=== PATIENT | female | born 1960 | race Caucasian/White ===

== ENCOUNTER 2019-05-30 09:34 | Inpatient (IN) ==
[2019-05-30] MEDS ORDERED: ONDANSETRON INJ 2 MG/ML 2 ML VIAL IV STA (09:56)
[2019-05-30] MEDS ORDERED: SODIUM CHLORIDE 0.9% 1000ML 2,000 ML IV SCH (10:00)
[2019-05-30 10:16] LABS: Basophils # (auto) 0.02 K/uL (0-0.2); Basophils % (auto) 0.2 %; Eosinophils # (auto) 0.12 K/uL (0-0.5); Hemoglobin 13.1 g/dL (12.0-16.0); Immature Granulocytes # (auto) 0.06 K/uL (0.00-0.02); Immature Granulocytes % (auto) 0.5 %; Lymphocytes # (auto) 1.04 K/uL (1.2-3.4); Lymphocytes % (auto) 8.8 %; Mean Corpuscular Hgb Conc 34.5 g/dL (32-36); Mean Corpuscular Volume 93.1 fL (80-100); Mean Platelet Volume 11.7 fL (7.4-10.4); Monocytes # (auto) 1.05 K/uL (0.11-0.59); Monocytes % (auto) 8.9 %; Neutrophils # (auto) 9.52 K/uL (1.4-6.5); Neutrophils % (auto) 80.6 %; Platelet Count 217 K/uL (130-400); RDW Coefficient of Variation 15.2 % (11.5-14.5); RDW Standard Deviation 51.3 fL (36.4-46.3); Red Blood Count 4.08 M/uL (4.2-5.4); White Blood Count 11.81 K/uL (4.8-10.8)
[2019-05-30 10:17] LABS: iSTAT Creatinine 5.2 mg/dl (0.6-1.3); iSTAT Hemoglobin 13.6 g/dl (12.0-16.0); iSTAT Ionized Calcium 1.02 mmol/l (1.12-1.32); iSTAT Potassium 3.4 mEq/L (3.3-5.0)
[2019-05-30 10:42] LABS: Albumin Globulin Ratio 0.5 (0.9-2); Albumin Level 2.2 gm/dl (3.4-5.0); BUN Creatinine Ratio 11.5 (10-20); Bilirubin,Total 0.4 mg/dl (0.2-1); Calcium 8.4 mg/dl (8.5-10.1); Creatinine Clr Calc Pharmacy 16.5 ml/min; Est GFR (African American) 10.8; Est GFR (Non-African American) 9.4; Globulin 4.9 gm/dl (2.5-4.0); Potassium 3.6 mmol/L (3.5-5.1); Total Protein 7.1 gm/dl (6.4-8.2)
--- NOTE | 2019-05-30 10:53 | Emergency Department Note ---
Entered by Hannah Lehman acting as a scribe for Luiz Elder DO History of Present Illness General Chief complaint: Flu Like Symptoms Time Seen by Provider: 05/30/19 09:56 Source: patient History of Present Illness Provider complaint: illness Onset (ago): day(s) 5 Pain Consistency: + other (episode) Maximum Pain Intensity: 0 Quality: + other (illness) Associated symptoms: + denies other symptoms (sick contact, eating bad food, being on antibiotics), + nausea/vomiting and + other (watery diarrhea, left upper rib pain) Treatments prior to arrival: none The patient is a 58 year old female who presents to the ED with complaints of an episode of an illness that started 5 days ago. The patient states that she has been nauseated, had diarrhea and has been vomiting. The patient notes that the vomiting stopped 3 days ago. The patient describes her diarrhea at watery. The patient states that she has left upper rib pain from a recent fall. The patient denies sick contact, eating bad food and being on antibiotics recently. The patient denies receiving any treatments prior to arrival. Home Medications Home Medications Medication Instructions Recorded Confirmed Type acetaminophen [Tylenol Extra 500 mg PO Q6H PRN 05/30/19 05/30/19 History Strength] albuterol sulfate [Ventolin HFA] 1 puff INHALATION Q4H PRN 05/30/19 05/30/19 History alprazolam 0.5 mg PO DAILY PRN 05/30/19 05/30/19 History aspirin 81 mg PO HS 05/30/19 05/30/19 History cholecalciferol (vitamin D3) 2,000 unit PO HS 05/30/19 05/30/19 History [Vitamin D3] clopidogrel 75 mg PO HS 05/30/19 05/30/19 History duloxetine 30 mg PO HS 05/30/19 05/30/19 History duloxetine 60 mg PO HS 05/30/19 05/30/19 History fenofibrate 160 mg PO HS 05/30/19 05/30/19 History qszfpvhuxgg-aryxvvqth-olcbjkqe 1 inh INHALATION BID 05/30/19 05/30/19 History [Trelegy Ellipta] insulin degludec [Tresiba 25 unit SUBCUT QAM 05/30/19 05/30/19 History FlexTouch U-100] lisinopril 10 mg PO HS 05/30/19 05/30/19 History metformin 500 mg PO BID 05/30/19 05/30/19 History pravastatin 20 mg PO HS 05/30/19 05/30/19 History Allergies Allergy/AdvReac Type Severity Reaction Status Date / Time isosorbide AdvReac Mild MIGRAINS Unverified 05/30/19 11:01 Past Med/Surg History Social History Preferred Language: Persian Feels Safe at Home: Yes Smoking Status: Current every day smoker Review of Systems See HPI for pertinent positives & negatives. and A total of 10 systems reviewed and were otherwise negative Physical Exam Vital Signs Vital Signs - 24 hr 05/30/19 09:48 05/30/19 09:52 05/30/19 09:54 Temperature 36.5 C Temperature Source Oral Sepsis Recent Fever Within 48 Hours Yes Sepsis New/Unexplained Change in Mental Status No Sepsis Action Taken by Nursing No Action Required Pulse Rate Pulse Rate [Apical] 73 77 Pulse Rhythm Regular Pulse Rhythm [Apical] Regular Regular Respiratory Rate 16 16 Respiratory Effort / Characteristics Non-Labored Spontaneous Non-Labored Spontaneous Respiratory Depth Normal Normal Respiratory Pattern Regular Blood Pressure Blood Pressure [Left Arm] 60/45 L 78/43 L Blood Pressure Mean Blood Pressure Mean [Left Arm] 50 54 Pulse Oximetry 93 92 Oxygen Delivery Method Room Air Room Air 05/30/19 10:01 05/30/19 10:14 05/30/19 10:37 Temperature Temperature Source Sepsis Recent Fever Within 48 Hours Sepsis New/Unexplained Change in Mental Status Sepsis Action Taken by Nursing Pulse Rate 74 71 Pulse Rate [Apical] 72 Pulse Rhythm Regular Pulse Rhythm [Apical] Regular Respiratory Rate 21 17 17 Respiratory Effort / Characteristics Non-Labored Spontaneous Respiratory Depth Normal Respiratory Pattern Regular Blood Pressure 78/44 L Blood Pressure [Left Arm] 81/56 L Blood Pressure Mean 55 Blood Pressure Mean [Left Arm] 64 Pulse Oximetry 93 92 Oxygen Delivery Method Room Air Room Air CONSTITUTIONAL/VITAL SIGNS: Reviewed / noted above. GENERAL: Non-toxic in appearance. INTEGUMENTARY: Warm, dry, and [place]. HEAD: Normocephalic. EYES: without scleral icterus or trauma. ENT/OROPHARYNX: dry mucous membranes. LYMPHADENOPATHY/NECK: Is supple without lymphadenopathy or meningismus. RESPIRATORY: Lungs clear and equal. CARDIOVASCULAR: Regular rate and rhythm. GI/ABDOMEN: RLQ tenderness to palpation, soft. No organomegaly or pulsatile mass. No rebound or guarding. Normal bowel sounds. EXTREMITIES: Warm and well perfused. BACK: No CVA tenderness. NEUROLOGICAL: Intact without focal deficits. PSYCHIATRIC: normal affect. MUSCULOSKELETAL: Normally developed with good muscle tone. Course 0958: Past medical records reviewed. The patient was evaluated in room B6. A complete history and physical exam was performed. 1052: I [facility] the [facility] She will evaluate the patient for further management. Consultations Consultation #1: I discussed the patient's case with [facility] Ru[facility] Hospitalist. She will evaluate the patient for further management. Time: 10:52 Administered Medications Sodium Chloride (Nss 1000ml) 2,000 mls @ 999 mls/hr IV .Q2H1M THANIA Stop: 05/30/19 12:00 Last Admin: 05/30/19 10:09 Dose: 999 mls/hr Documented by: [id number] Discontinued Medications Ondansetron HCl (Zofran) 4 mg IV NOW STA Stop: 05/30/19 09:57 Last Admin: 05/30/19 10:38 Dose: 4 mg Documented by: [id number] Medical Decision Making Differential Diagnosis Differential includes acute coronary syndrome, myocardial infarction, CVA, TIA, anemia, infection, pneumonia, UTI, pyelonephritis, poor nutrition, dehydration, electrolyte disturbance,hypoglycemia. Medical Records Attestation: I reviewed the patient's medical records. Home Medications Current Medication List: was personally reviewed by me Laboratory Data Attestation: I reviewed the patient's lab results. Result diagrams: 05/30/19 10:02 05/30/19 10:02 Lab Results 05/30/19 05/30/19 05/30/19 Range/Units 10:02 10:02 10:03 WBC 11.81 H (4.8-10.8) K/uL RBC 4.08 L (4.2-5.4) M/uL Hgb 13.1 (12.0-16.0) g/dL POC Hgb 13.6 (12.0-16.0) g/dl Hct 38.0 (37-47) % POC Hct 40 (37-47) % MCV 93.1 (80-100) fL MCH 32.1 (25-34) pg MCHC 34.5 (32-36) g/dL RDW Std Deviation 51.3 H (36.4-46.3) fL RDW Coeff of Randa 15.2 H (11.5-14.5) % Plt Count 217 (130-400) K/uL MPV 11.7 H (7.4-10.4) fL Immature Gran % (Auto) 0.5 % Neut % (Auto) 80.6 % Lymph % (Auto) 8.8 % [place] % (Auto) 8.9 % Eos % (Auto) 1.0 % Baso % (Auto) 0.2 % Immature Gran # (Auto) 0.06 H (0.00-0.02) K/uL Neut # (Auto) 9.52 H (1.4-6.5) K/uL Lymph # (Auto) 1.04 L (1.2-3.4) K/uL [place] # (Auto) 1.05 H (0.11-0.59) K/uL Eos # (Auto) 0.12 (0-0.5) K/uL Baso # (Auto) 0.02 (0-0.2) K/uL POC Sodium 133 L (135-144) mEq/L Sodium 135 L (136-145) mmol/L POC Potassium 3.4 (3.3-5.0) mEq/L Potassium 3.6 (3.5-5.1) mmol/L POC Chloride 101 (101-112) mEq/L Chloride 102 (98-107) mmol/L Carbon Dioxide 23 (21-32) mmol/L POC Total CO2 24 (24-31) mEq/l Anion Gap 10.0 (3-11) POC Anion Gap 13.0 L (16-25) mmol/L POC BUN 49 H (7-18) mg/dl BUN 55 H (7-18) mg/dl Creatinine 4.78 H* (0.6-1.2) mg/dl POC Creatinine 5.2 H* (0.6-1.3) mg/dl Est Cr Clr Drug Dosing 16.5 ml/min Est GFR ( Amer) 10.8 Est GFR (Non-Af Amer) 9.4 BUN/Creatinine Ratio 11.5 (10-20) Glucose 163 H (70-99) mg/dl POC Glucose (other) 163 H (70-99) mg/dl Lactate (0.4-2.0) mmol/L Calcium 8.4 L (8.5-10.1) mg/dl POC Ioniz Calcium Analisa 1.02 L (1.12-1.32) mmol/l Total Bilirubin 0.4 (0.2-1) mg/dl AST 15 (15-37) U/L ALT 13 (12-78) U/L Alkaline Phosphatase 55 (45-117) U/L Total Protein 7.1 (6.4-8.2) gm/dl Albumin 2.2 L (3.4-5.0) gm/dl Globulin 4.9 H (2.5-4.0) gm/dl Albumin/Globulin Ratio 0.5 L (0.9-2) TSH 1.390 (0.300-4.500) uIu/ml 05/30/19 Range/Units 10:30 WBC (4.8-10.8) K/uL RBC (4.2-5.4) M/uL Hgb (12.0-16.0) g/dL POC Hgb (12.0-16.0) g/dl Hct (37-47) % POC Hct (37-47) % MCV (80-100) fL MCH (25-34) pg MCHC (32-36) g/dL RDW Std Deviation (36.4-46.3) fL RDW Coeff of Randa (11.5-14.5) % Plt Count (130-400) K/uL MPV (7.4-10.4) fL Immature Gran % (Auto) % Neut % (Auto) % Lymph % (Auto) % [place] % (Auto) % Eos % (Auto) % Baso % (Auto) % Immature Gran # (Auto) (0.00-0.02) K/uL Neut # (Auto) (1.4-6.5) K/uL Lymph # (Auto) (1.2-3.4) K/uL [place] # (Auto) (0.11-0.59) K/uL Eos # (Auto) (0-0.5) K/uL Baso # (Auto) (0-0.2) K/uL POC Sodium (135-144) mEq/L Sodium (136-145) mmol/L POC Potassium (3.3-5.0) mEq/L Potassium (3.5-5.1) mmol/L POC Chloride (101-112) mEq/L Chloride (98-107) mmol/L Carbon Dioxide (21-32) mmol/L POC Total CO2 (24-31) mEq/l Anion Gap (3-11) POC Anion Gap (16-25) mmol/L POC BUN (7-18) mg/dl BUN (7-18) mg/dl Creatinine (0.6-1.2) mg/dl POC Creatinine (0.6-1.3) mg/dl Est Cr Clr Drug Dosing ml/min Est GFR ( Amer) Est GFR (Non-Af Amer) BUN/Creatinine Ratio (10-20) Glucose (70-99) mg/dl POC Glucose (other) (70-99) mg/dl Lactate 3.8 H* (0.4-2.0) mmol/L Calcium (8.5-10.1) mg/dl POC Ioniz Calcium Analisa (1.12-1.32) mmol/l Total Bilirubin (0.2-1) mg/dl AST (15-37) U/L ALT (12-78) U/L Alkaline Phosphatase (45-117) U/L Total Protein (6.4-8.2) gm/dl Albumin (3.4-5.0) gm/dl Globulin (2.5-4.0) gm/dl Albumin/Globulin Ratio (0.9-2) TSH (0.300-4.500) uIu/ml Imaging Data Radiologist's Impression: Radiology results as stated below per my review and the radiologist's interpretation: XR chest 1V portable CLINICAL HISTORY: Left rib pain status post trauma COMPARISON STUDY: 119 FINDINGS: There are postsurgical changes of midline sternotomy. The heart is mildly enlarged. There is no focal pulmonary consolidation. There is no overt failure. There are no significant pleural effusions. There is no pneumothorax.[ IMPRESSION: Cardiomegaly. No acute findings. No evidence of pneumothorax Electronically signed by: Wiley Lagunas M.D. 05/30/2019 10:[address] abd pelvis wo con CT DOSE: 1467.64 mGy.cm HISTORY: Pain. Flank pain. rlq pain, n/v/d TECHNIQUE: Multiaxial CT images of the abdomen and pelvis were performed without contrast. A dose lowering technique was utilized adhering to the principles of ALARA. COMPARISON STUDY: 02/15/2019 FINDINGS: Minimal dependent basilar atelectasis. Mild stable hepatomegaly. Prior cholecystectomy. Pancreas and spleen are unremarkable. Moderate atrophy and cortical scarring left kidney unchanged. Interval development of right renal hydroureteronephrosis. 2 mm obstructing c alculus distal right ureter. Bladder is relatively collapsed. Bowel pattern is nonobstructive. Normal appendix. IMPRESSION: 1. 2 mm obstructing calculus distal right ureter. 2. Mild right renal hydroureteronephrosis. 3. Several nonobstructing right renal cortical calcifications. 4. Left renal atrophy unchanged. 5. Remainder of the study is stable The above report was generated using voice recognition software. It may contain grammatical, syntax or spelling errors. Electronically signed by: Kiko Barnett M.D. 05/30/2019 10:53 AM ECG Data Indication: weakness Rate (beats per minute): 77 Rhythm: normal sinus Findings: + T-wave inversion (Anterolateral) Comparison ECG Date: from (February 15, 2019, T inversions anterior are new. Lat inversions old. ) Blood Pressure Blood Pressure Findings: Low blood pressure Blood Pressure Disposition: further management by hospitalist MATT Glover This is a 58-year-old female who presents to the ED with a chief complaint of nausea, vomiting and diarrhea. The patient states that she has been having the symptoms since Sunday, 5 days. The first 2 days she had vomiting and diarrhea. This ended but the diarrhea persisted. She reports that it is a watery diarrhea and she is going about 3-5 times per day. She states that at times she does not know that it is coming. The patient's initial blood pressure here was 78/43. Her physical exam was relatively benign other than dry mucous membranes. An EKG shows a normal sinus rhythm at a rate of 77. Does have some T wave inversions in the anterolateral leads. The lateral T wave inversion appears to be chronic. The anterior T wave inversions appear to be new. She is on rate controlled antihypertensives. A CT scan of the abdomen pelvis did show a 2 mm distal right ureteral stone with some mild obstructive changes. The patient was given 2 L normal saline IV bolus in the emergency department for her hypotension. She was also given IV Zofran. She will be seen by the hospitalist for further evaluation and care. Impression & Plan Nausea, vomiting, and diarrhea, Acute renal failure, Dehydration, Hypotension, Ureteral calculus, right Critical Care Time Critical Care Time: Yes Total Critical Care Time: 30 I have personally spent 30 minutes of critical care time in the direct management of this patient. This includes bedside care, interpretation of diagnostic studies, and testing, discussion with consultants, patient, and [facility] members, and other required patient management activities. This 30 minutes is in excess of all separately billable procedures. Discharge Plan Visit Data Chief Complaint: Flu Like Symptoms ED Provider: Luiz Elder Discharge Problem: Nausea, vomiting, and diarrhea, Acute renal failure, Dehydration, Hypotension, Ureteral calculus, right Patient Disposition: Being Evaluated by Hospitalist Forms Stand Alone Forms: [facility] Prescriptions Prescriptions: No Action clopidogrel 75 mg tablet 75 mg PO HS RF: 0 aspirin 81 mg Tablet,Delayed Release (Dr/Ec) 81 mg PO HS RF: 0 acetaminophen [Tylenol Extra Strength] 500 mg Tablet 500 mg PO Q6H PRN (Reason: Pain) RF: 0 alprazolam 0.5 mg tablet 0.5 mg PO DAILY PRN (Reason: Anxiety) RF: 0 pravastatin 10 mg tablet 20 mg PO HS RF: 0 lisinopril 10 mg tablet 10 mg PO HS RF: 0 albuterol sulfate [Ventolin HFA] 90 mcg/actuation HFA aerosol inhaler 1 puff inhalation Q4H PRN (Reason: Shortness Of Breath Or Wheezing) RF: 0 metformin 500 mg tablet extended release 24 hr 500 mg PO BID RF: 0 duloxetine 30 mg capsule,delayed release(DR/EC) 30 mg PO HS RF: 0 duloxetine 60 mg capsule,delayed release(DR/EC) 60 mg PO HS RF: 0 fenofibrate 160 mg tablet 160 mg PO HS RF: 0 cholecalciferol (vitamin D3) [Vitamin D3] 2,000 unit Tablet 2,000 unit PO HS RF: 0 Tresiba FlexTouch U-100 100 unit/mL (3 mL) insulin pen 25 unit subcut QAM RF: 0 Trelegy Ellipta 100-62.5-25 mcg blister with device 1 inh inhalation BID RF: 0 Referrals Referrals: PCP,NO [Primary Care Provider] - Discharge Problem: Acute renal failure Qualifiers: Acute renal failure type: unspecified Qualified Code(s): N17.9 - Acute kidney failure, unspecified Hypotension Qualifiers: Hypotension type: unspecified hypotension type Qualified Code(s): I95.9 - Hypotension, unspecified The scribe's documentation has been prepared under my direction and personally reviewed by me in its entirety. I confirm that the note above accurately reflects all work, treatment, procedures, and medical decision making performed by me.
--- NOTE | 2019-05-30 10:54 | XRay Report ---
XR chest 1V portable CLINICAL HISTORY: Left rib pain status post trauma COMPARISON STUDY: 119 FINDINGS: There are postsurgical changes of midline sternotomy. The heart is mildly enlarged. There i s no focal pulmonary consolidation. There is no overt failure. There are no significant pleural effus ions. There is no pneumothorax.[ IMPRESSION: Cardiomegaly. No acute findings. No evidence of pneumothorax Electronically signed by: Wiley Lagunas M.D. 05/30/2019 10:53 AM
--- NOTE | 2019-05-30 11:37 | History & Physical Report ---
Date of Service May 30, 2019 Assessment & Plan (1) Nausea, vomiting, and diarrhea: Sx c/w acute GE given started with emesis which has resolved and moved into diarrhea CTAP noted for obstructing renal stone, which may be contributing IVF, zofran Clears Electrolytes WNL with K low normal, will add K to IVF (2) Acute renal failure: Likely related to dehydration from above sx CTAP noted for obstructing renal stone, which may be contributing No prior hx of renal issues Taking lisinopril and metformin, hold both Monitor cr (3) Ureteral calculus, right: CTAP noted for obstructing renal stone, which may be contributing Add flomax (4) Fall: Likely related to ARF leading to weakness Pt is otherwise functional, will hold on PT/OT unless this persists (5) History of open heart surgery: Will continue asp/plavix given need for repeat surgery with prior d/c of plavix (6) Hyperlipidemia: Holding for now (7) HTN (hypertension): HypoTN in the ED, likely related to above Holding home meds (8) DM type 2 (diabetes mellitus, type 2): Holding home insulin and metformin until reliable PO and cr is WNL SSI PRN A1c pending (9) Depression: continue home meds (10) COPD (chronic obstructive pulmonary disease): continue home meds (11) Anxiety: continue home meds (12) Tobacco use disorder: Working towards cessation with chantix, but no desire to smoke during acute illness Nicotine patch PRN (13) DVT prophylaxis: SCDs, ambulation History of Present Illness Primary Care Provider: NO PCP 58 y/o F c/o n/v/d. Pt states she started to have body aches on Sunday. She started to have n/v and intolerance to PO on Sunday. This continued on Sunday and she also started to have diarrhea. By Sunday, pt had stopped with n/v but she continued to have diarrhea that was mostly water. This has continued into today. Her last emesis was Sunday. She has been able to keep down a bit of soup and watermelon since that time, but no substantial PO other than some fluids. She states she was sick with something similar a few months ago, but it was much less severe. Over the last few days, pt has not been urinating much. She has also noted that she feels confused and her friend states that she has been saying things that are not making sense and having trouble walking. Pt states she feels very weak and has had several falls over the last few days, which is unusual for her. Pt notes taking some sort of OTC anti-diarrheal medication the last few days. She has been able to take her regular medicines, but did miss her insulin this AM. Pt has hx of renal stones requiring lithotripsy and surgical stent placement. She states she has baseline back pain and this has been no different. She states that she has had no sx similar to when she has had renal stones in the past. Pt is a smoker, usually 1ppd, but has been only smoking about 2 cigs/day during this acute illness. She is trying to stop using chantix. Pt tells me that she had a CABG 8 yrs ago. She was put on aspirin/plavix at that time. 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 She has been told that she will need this medication indefinitely. She has been taking it while ill. Allergies Allergy/AdvReac Type Severity Reaction Status Date / Time isosorbide AdvReac Mild MIGRAINS Unverified 05/30/19 11:01 Home Medications Home Medications Medication Instructions Recorded Confirmed Type acetaminophen [Tylenol Extra 500 mg PO Q6H PRN 05/30/19 05/30/19 History Strength] albuterol sulfate [Ventolin HFA] 1 puff INHALATION Q4H PRN 05/30/19 05/30/19 History alprazolam 0.5 mg PO DAILY PRN 05/30/19 05/30/19 History aspirin 81 mg PO HS 05/30/19 05/30/19 History cholecalciferol (vitamin D3) 2,000 unit PO HS 05/30/19 05/30/19 History [Vitamin D3] clopidogrel 75 mg PO HS 05/30/19 05/30/19 History duloxetine 30 mg PO HS 05/30/19 05/30/19 History duloxetine 60 mg PO HS 05/30/19 05/30/19 History fenofibrate 160 mg PO HS 05/30/19 05/30/19 History hjoezwswzpl-oqgmlqlrp-hremabvi 1 inh INHALATION BID 05/30/19 05/30/19 History [Trelegy Ellipta] insulin degludec [Tresiba 25 unit SUBCUT QAM 05/30/19 05/30/19 History FlexTouch U-100] lisinopril 10 mg PO HS 05/30/19 05/30/19 History metformin 500 mg PO BID 05/30/19 05/30/19 History pravastatin 20 mg PO HS 05/30/19 05/30/19 History Past Med/Surg History Medical History History of intravascular stent placement Surgical History Previous back surgery History of open heart surgery Social History Preferred Language: Welsh Feels Safe at Home: Yes Smoking Status: Current every day smoker packs per day: 1 ; Hx Alcohol Use: Yes (occasional, none recently) Hx Substance Use: No Review of Systems Review of Systems: Pertinent positives and negatives reviewed in HPI--all others negative Physical Exam Constitutional: WD/WN, vitals as above + ill appearing Eyes: normal visual renteria by confrontation and + anicteric sclerae Neck: normal visual inspection and trachea midline Respiratory: normal respiratory effort, lungs clear to auscultation Cardiovascular: Rate/Rhythm: regular rate and regular rhythm Gastrointestinal (Abdomen): Inspection/Auscultation: abdomen not distended Percussion/Palpation: abdomen soft; abdomen nontender Musculoskeletal: Head/Neck/Chest: normocephalic and head atraumatic negative for edema, peripheral pulses intact Skin: no rashes, warm and dry Neurologic: CN's II-XI intact bilaterally and awake; not confused Speech / 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 5/5 b/l LE strength against resistance 5/5 b/l in all planes Psychiatric: Orientation: oriented x 3 and cooperative Speech: normal rate/rhythm/volume of speech Affect: + tearful affect Results & Data Vital Signs (Past 12 Hours) Vital Signs Temp Pulse Pulse Resp BP BP Pulse Ox 05/30/19 11:15 74 16 69/47 L 92 05/30/19 11:00 74 19 88/53 L 93 05/30/19 10:45 74 20 86/60 L 93 05/30/19 10:37 72 17 81/56 L 92 05/30/19 10:14 71 17 93 05/30/19 10:01 74 21 78/44 L 05/30/19 09:54 77 16 78/43 L 92 05/30/19 09:52 36.5 C 05/30/19 09:48 73 16 60/45 L 93 Diagnostic Findings CTAP: 2mm obstructing renal stones with mild hydro, multiple other small nonobstructing stones ECG Findings: + T-wave inversion Code Status & VTE Plan Code Status Full code VTE Prophylaxis Plan VTE Prophylaxis will be ordered: Yes PG Care Time/CCT Total # of Minutes Spent Total Time Spent with Patient: Total time spent is greater than 50% in coordi nation of care (as documented) at patient's floor/unit and/or counseling patient: (1) Acute renal failure Acute renal failure type: unspecified Qualified Code(s): N17.9 - Acute kidney failure, unspecified
[2019-05-30] MEDS ORDERED: SODIUM CHLORIDE 0.9% 1000ML 1,000 ML IV ONE (11:45)
[2019-05-30] MEDS ORDERED: ASPIRIN CHEW 324 MG PO STA (12:20)
[2019-05-30] MEDS ORDERED: ACETAMINOPHEN 325 MG TAB PO PRN (14:56)
[2019-05-30] MEDS ORDERED: CARBOHYDRATES FOR HYPOGLYCEMIA PO PRN (14:56)
[2019-05-30] MEDS ORDERED: GLUCOSE 10 TABS/TUBE PO PRN (14:56)
[2019-05-30] MEDS ORDERED: GLUCAGON FOR INJ 1 MG VIAL SQ PRN (14:56)
[2019-05-30] MEDS ORDERED: ALPRAZolam 0.5 MG TABLET PO PRN (14:56)
[2019-05-30] MEDS ORDERED: ONDANSETRON INJ 2 MG/ML 2 ML VIAL IV PRN (14:56)
[2019-05-30] MEDS ORDERED: MAGNESIUM HYDROXIDE SUSP 30 ML UDC PO PRN (14:56)
[2019-05-30] MEDS ORDERED: ACETAMINOPHEN 500 MG TAB PO PRN (14:56)
[2019-05-30] MEDS ORDERED: DEXTROSE 50% 50 ML SYRINGE IV PRN (14:56)
[2019-05-30] MEDS ORDERED: GLUCOSE 40% GEL 15 GM TUBE PO PRN (14:56)
[2019-05-30] MEDS ORDERED: NICOTINE 14 MG/24 HR PATCH TD PRN (15:00)
[2019-05-30] MEDS ORDERED: ALBUTEROL HFA 8 GM INHALER INH PRN (15:00)
[2019-05-30] MEDS: NSS + 20MEQ KCL 20 MEQ/1,000 ML BAG IV SCH (16:11)
[2019-05-30] MEDS: INSULIN ASPART 100 UNITS/ML 3 ML PEN SC SCH ×2 (18:08→20:59)
[2019-05-30] MEDS: DULOXETINE HCL 30 MG CAP PO SCH (21:02)
[2019-05-30] MEDS: ASPIRIN 81 MG ECTAB PO SCH (21:02)
[2019-05-30] MEDS: CLOPIDOGREL BISULFATE 75 MG TAB PO SCH (21:02)
[2019-05-30] MEDS: DULOXETINE HCL 60 MG CAP PO SCH (21:02)
--- NOTE | 2019-05-30 23:06 | CT Scan Report ---
CT OF THE HEAD WITHOUT CONTRAST CLINICAL HISTORY: fall on head COMPARISON STUDY: No previous studies for comparison. CT DOSE: 614.27 mGy.cm TECHNIQUE: Helical axial images of the head were obtained without IV contrast. Automated exposure con trol was utilized for the study. A dose lowering technique was utilized adhering to the principles o f ALARA. FINDINGS: No acute intracranial hemorrhage, midline shift or mass effect is present. There is a 3.3 c m hypodensity within the left occipital lobe. The ventricular system is normal. The basilar cisterns are patent. There are no extra-axial collections. White matter hypodensity suggests small vessel dise ase. There is no calvarial fracture. IMPRESSION: 1. No acute intracranial hemorrhage. No calvarial fracture. 2. 3.3 cm left occipital lobe hypodensity. 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 An MRI of the brain is recommended for confirmation. Electronically signed by: Ashok Cesar M.D. 05/30/2019 11:05 PM
[2019-05-31] MEDS: NSS + 20MEQ KCL 20 MEQ/1,000 ML BAG IV SCH ×3 (00:02→18:37)
--- NOTE | 2019-05-31 00:44 | Progress Note ---
Date of Service May 31, 2019 Assessment & Plan (1) Fall: 58yo F here with hypotension, diarrhea, dehydration, obstructive nephrolithiasis and NATACHA - called to bedside by nursing for fall out of bed. Was ambulating by herself to the bathroom "I didn't want to bother anyone" and said she hit the front of her head on wall of bathroom and also right side. Denies LOC or residual focal weakness. Does feel lightheaded with ambulation and was having profound watery stools shortly after. VS show BP 89/60 HR 80, RR 18, 95% on 2L NC GEN: nad hent: nc/at, nontender to palpation along scalp, no evidence of bleeding or fracture neuro: ambulating, moves all four extremities equally, CN II-XII grossly in tact psych: appropriate mood/affect, cooperative A/P mechanical fall 2/2 orthostatic hypotension support with fluids IV, recommend start [place] cath to monitor output in setting of obstructive nephrolithiasis pt is on plavix - head CT w/o con ordered - shows subacute hypodensity 3cm post cerebrum - MR w/o con ordered to eval further. No evid of bleed on CT. added cdiff, and Gagan and uCrt to more assess NATACHA pathology, does appear to be mixed pre/post given history. A Evon FAY Results & Data Vital Signs (Past 12 Hours) Vital Signs Temp Pulse Pulse Resp BP BP Pulse Ox 05/30/19 23:48 36.7 C 80 18 89/60 L 95 05/30/19 20:24 72 05/30/19 19:35 36.8 C 82 24 110/78 94 05/30/19 14:35 36.7 C 70 20 94/61 L 94 05/30/19 13:50 77 16 81/53 L 95 05/30/19 13:30 70 17 90/55 L 95 05/30/19 13:15 70 18 78/54 L 95 05/30/19 13:00 73 17 93/55 L 94 05/30/19 12:45 67 17 85/55 L 94 Resident Activity Tracking Resident Involvement: Resident Care Provided Care Provided: Adult Hospital Medicine
[2019-05-31 05:54] LABS: Basophils # (auto) 0.02 K/uL (0-0.2); Basophils % (auto) 0.2 %; Eosinophils # (auto) 0.06 K/uL (0-0.5); Eosinophils % (auto) 0.6 %; Hematocrit (blood only) 35.7 % (37-47); Hemoglobin 11.9 g/dL (12.0-16.0); Immature Granulocytes # (auto) 0.05 K/uL (0.00-0.02); Immature Granulocytes % (auto) 0.5 %; Lymphocytes # (auto) 1.05 K/uL (1.2-3.4); Lymphocytes % (auto) 9.7 %; Mean Corpuscular Hgb Conc 33.3 g/dL (32-36); Mean Corpuscular Volume 93.2 fL (80-100); Mean Platelet Volume 11.6 fL (7.4-10.4); Monocytes # (auto) 0.83 K/uL (0.11-0.59); Monocytes % (auto) 7.6 %; Neutrophils # (auto) 8.85 K/uL (1.4-6.5); Neutrophils % (auto) 81.4 %; Platelet Count 207 K/uL (130-400); RDW Coefficient of Variation 15.6 % (11.5-14.5); Red Blood Count 3.83 M/uL (4.2-5.4); White Blood Count 10.86 K/uL (4.8-10.8)
[2019-05-31 06:26] LABS: Estimated Average Glucose 192 mg/dl; Hemoglobin A1C 8.3 % (4.5-5.6)
[2019-05-31 06:29] LABS: BUN Creatinine Ratio 16.3 (10-20); Calcium 7.5 mg/dl (8.5-10.1); Creatinine Clr Calc Pharmacy 27.9 ml/min; Est GFR (African American) 20.5; Est GFR (Non-African American) 17.7; Magnesium 1.6 mg/dl (1.8-2.4); Phosphorus 3.2 mg/dl (2.5-4.9); Potassium 3.9 mmol/L (3.5-5.1)
[2019-05-31] MEDS ORDERED: PHARMACIST DISCHARGE MED REC CONSULT PRN (08:34)
[2019-05-31] MEDS: INSULIN ASPART 100 UNITS/ML 3 ML PEN SC SCH ×4 (09:13→20:38)
--- NOTE | 2019-05-31 10:30 | Magnetic Resonance Report ---
MR angio head wo con CLINICAL HISTORY: 58 years-old Female presenting with flulike symptoms, recent falls, headache, histo ry of CKD, concern for infarct on noncontrast CT head. TECHNIQUE: MR angiography of the head was performed without the use of intravenous contrast using 3-D frow-to-bwazlm technique. 3-D volumetric and/or maximum intensity projection (MIP) images were subse quently reconstructed for review. IV contrast: None. COMPARISON: Noncontrast CT head performed the previous day. FINDINGS: Localizer images: Unremarkable. Anterior circulation: Intracranial portions of the internal carotid arteries patent to the level of t he termini. Hypoplastic or aplastic A1 segment of the right anterior cerebral artery (KOREY). Left KOREY patent. Middle cerebral arteries patent. Anterior communicating artery patent. Posterior circulation: Codominant vertebral arteries. Intradural portions of the vertebral arteries p atent. Posterior inferior cerebellar arteries patent. Basilar artery patent. Anterior inferior cerebe llar arteries poorly visualized. Superior cerebellar arteries patent. Posterior cerebral arteries (PC A) patent. origin of the right ABALONE DIVER. Right posterior communicating artery (P-comm) patent. Left P-comm hypoplastic or aplastic. IMPRESSION: 1. No significant stenosis, aneurysm, or focal vessel occlusion. Electronically signed by: Antwan Ramos M.D. 05/31/2019 10:27 AM
--- NOTE | 2019-05-31 10:43 | Magnetic Resonance Report ---
MR brain wo con CLINICAL HISTORY: 58 years-old Female presenting with hypodensity on head CT need further exploration , concern for stroke, NATACHA. TECHNIQUE: Multisequence, multiplanar MR imaging of the brain was performed without the use of intrav enous contrast. IV contrast: None. COMPARISON: CT head performed the previous day. FINDINGS: Localizer images: Unremarkable. Bone marrow signal intensity within the calvarium within normal limits. Normal midline sagittal structures. Proportional ventricular and sulcal prominence, likely age-relate d parenchymal volume loss. No mass effect or midline shift. Acute infarct in the paramedian left occi pital lobe in the left posterior cerebral artery (BURNING SUPERVISOR) distribution. Punctate acute lacunar infarct i n the right cerebellar hemisphere. T-2/flair hyperintensity with regional sulcal effacement at the pa ramedian left occipital lobe. No extra-axial fluid collection. T2 skull base flow voids preserved. IMPRESSION: 1. Acute infarct in the paramedian left occipital lobe in the left BURNING SUPERVISOR distribution. T2/FLAIR hyperi ntense signal in this region suggests an infarct at least 6-12 hours old. 2. Acute lacunar infarct in the right cerebellar hemisphere. The report will be called/faxed according to standard departmental protocol for a critical finding. Electronically signed by: Antwan Ramos M.D. 05/31/2019 10:42 AM
[2019-05-31] MEDS: cefTRIAXone SODIUM 2,000 MG in DEXTROSE 5% 50 ML IV SCH (10:46)
[2019-05-31] MEDS: MAGNESIUM SULFATE / D5W 1 GM/100 ML BAG IV SCH ×2 (10:46→11:52)
--- NOTE | 2019-05-31 10:55 | Urology Consultation ---
Date of Consultation May 31, 2019 Assessment & Plan (1) Ureteral calculus, right: Suspicion of an infected right collecting system secondary to distal right ureteral calculus She has had no urine testing since arrivalculture/UA ordered Creatinine 2.8decreased from 4.7 yesterday Given her findings, I suspect that the acute stress of sepsis related to an obstructing/infected distal stone has likely contributed to her cardiac changes and general symptoms Despite her other acute issues I think it appropriate to plan for decompression of the right collecting system with cystoscopy and right ureteral stent placement CHAKA - presuming cards/anesthesia/neurology feel we are not putting her in extreme risk by performing the procedure Risks, benefits, alternatives discussed History of Present Illness Attending Physician: Angelique Lopez MD History of Present Illness acutely ill 58y/o female with several current issues initial presenting complaint of right lower quadrant pain with associated nausea and diarrhea additionally, she had suffered several falls in the 24-48hours prior to arrival - balance and mobility were significantly different from baseline Hypotensive and tachycardic on arrival Fevers at home - subjective Urinary frequency Hemiplegia Upon arrival here found to have elevated troponins, leukocytosis, acutely elevated creatinine CT reveals an atrophic left kidneysome calcifications outside the kidney, no left-sided obstruction. Healthier appearing right kidney with moderate hydronephrosis and apparent distal right ureteral calculus2 mm Has undergone imaging of her brainCT/MRI with question of subacute or chronic infarct Has had initial cardiac evaluation with EKG, etc. Remains extremely uncomfortable and moderately ill appearing Allergies Allergy/AdvReac Type Severity Reaction Status Date / Time isosorbide AdvReac Mild MIGRAINS Unverified 05/30/19 11:01 Home Medications Home Medications Medication Instructions Recorded Confirmed Type acetaminophen [Tylenol Extra 500 mg PO Q6H PRN 05/30/19 05/30/19 History Strength] albuterol sulfate [Ventolin HFA] 1 puff INHALATION Q4H PRN 05/30/19 05/30/19 History alprazolam 0.5 mg PO DAILY PRN 05/30/19 05/30/19 History aspirin 81 mg PO HS 05/30/19 05/30/19 History cholecalciferol (vitamin D3) 2,000 unit PO HS 05/30/19 05/30/19 History [Vitamin D3] clopidogrel 75 mg PO HS 05/30/19 05/30/19 History duloxetine 30 mg PO HS 05/30/19 05/30/19 History duloxetine 60 mg PO HS 05/30/19 05/30/19 History fenofibrate 160 mg PO HS 05/30/19 05/30/19 History [id number] 1 inh INHALATION BID 05/30/19 05/30/19 History [Trelegy Ellipta] insulin degludec [Tresiba 25 unit SUBCUT QAM 05/30/19 05/30/19 History FlexTouch U-100] lisinopril 10 mg PO HS 05/30/19 05/30/19 History metformin 500 mg PO BID 05/30/19 05/30/19 History pravastatin 20 mg PO HS 05/30/19 05/30/19 History Patient History Medical History History of intravascular stent placement Surgical History Previous back surgery History of open heart surgery Social History Preferred Language: Swedish Communication Ability: Effective Beliefs That Will Affect Care: None Current Living Situation: Alone Feels Safe at Home: Yes Smoking Status: Current every day smoker Tobacco Type: cigarettes ; packs per day: 1 ; Cigarettes Per Day: 20 ; Hx Alcohol Use: Yes (occasional, none recently) Alcohol type: beer and hard liquor Hx Substance Use: No Review of Systems Constitutional: + fever, + chills and + fatigue Eyes: no worsening vision Ear, Nose, Mouth, Throat: no facial pain and no pain with swallowing Respiratory: no cough and no dyspnea Cardiovascular: no chest pain and no palpitations Gastrointestinal: + abdominal pain, + nausea, + vomiting, + change in stools and + diarrhea/loose stools Genitourinary: no dysuria, no difficulty urinating, no urinary frequency and no hematuria Musculoskeletal: + muscle weakness; no back pain Integumentary: no rash and no urticaria Neurologic: + gait abnormality, + falls and + generalized weakness; no unsteadiness Psychiatric: no behavioral changes and no depression Endocrine: no fatigue Physical Exam Constitutional: + acute distress and + ill appearing Neck: neck nontender Respiratory: normal respiratory effort; no respiratory distress and does not use accessory muscles Cardiovascular: Rate/Rhythm: regular rate Vessels: radial pulses present Extremities: no edema Gastrointestinal (Abdomen): Inspection/Auscultation: abdomen normal to inspection Percussion/Palpation: + abdomen tender (Right lower quadrant) and abdomen soft; no guarding Musculoskeletal: Head/Neck/Chest: normocephalic and head atraumatic Extremities: extremities normal to inspection Skin: no rashes and no lesions Trauma: no evidence of skin trauma Neurologic: awake; not obtunded Speech / Cognition: normal speech Motor/Sensory: no tremor Psychiatric: Orientation: alert and oriented x 3 Lymphatic: no lymphadenopathy Results & Data Vital Signs (Past 12 Hours) Vital Signs Temp Pulse Pulse Resp BP BP Pulse Ox 05/31/19 08:08 84 05/31/19 07:21 37.0 C 67 94 H 95/59 L 94 05/31/19 00:47 104 H 05/30/19 23:48 36.7 C 80 18 89/60 L 95 PG Care Time/CCT Total # of Minutes Spent Total Time Spent with Patient: Total time spent is greater than 50% in coordination of care (as documented) at patient's floor/unit and/or counseling patient:
--- NOTE | 2019-05-31 12:17 | Neurology Consultation ---
Date of Consultation May 31, 2019 Assessment & Plan (1) Occipital stroke: Acute left occipital lobe infarct. Exact time of onset not entirely certain as patient has been unaware of her right homonymous hemianopsia. She does have a much smaller acute lacunar infarct within the right cerebellar hemisphere as well but does not have an obvious focal ataxia on examination. This patient has multiple stroke risk factors including significant cardiovascular disease, peripheral vascular disease, diabetes mellitus which appears to be suboptimally controlled, hypertension, hyperlipidemia, and cigarette smoking. I would like to obtain some imaging of her cervical circulation. However, in light of her acute kidney injury, I would recommend a carotid duplex at this time, instead of either an MRA or CTA of the neck as both of these studies would require intravenous contrast. This patient should also have a transthoracic echocardiogram with bubble study. She should continue with daily low-dose aspirin and clopidogrel 75 mg/day. However, if a significant risk for cardioembolism is identified (such as significantly reduced ejection fraction/wall motion abnormalities on echocardiogram, or atrial fibrillation on telemetry) I would then recommend anticoagulation in that setting. Smoking cessation needs to be stressed with this patient. She will need an outpatient visual field assessment with ophthalmology as well. Unfortunately, I do not think she will be able to drive a motor vehicle in light of her right homonymous hemianopsia. She should have consultations with PT/OT as well. Please contact me if I may be of further assistance. History of Present Illness Reason for Consultation: Stroke Requesting Physician: Dayanna Valadez Attending Physician: Angelique Lopez MD History of Present Illness The patient is a 58-year-old female who presented to the emergency department yesterday complaining of nausea, vomiting, and diarrhea with poor p.o. intake which had begun 5 days prior. She also had an isolated fall. She was admitted with several medical issues including her nonspecific gastrointestinal illness, acute renal failure, and obstructive nephrolithiasis. Because she had fallen, a CT of the head was obtained yesterday which revealed a 3.3 cm left occipital lobe hypodensity consistent with a chronic versus subacute infarct. The patient had not been complaining of any specific loss to her visual field. A follow-up brain MRI completed this morning did reveal an area of restricted diffusion within the left occipital lobe/left WRAPPER REWINDER territory consistent with an acute infarct. There was also an acute lacunar infarct within the right cerebellar hemisphere. I reviewed the images as well as the radiologist interpretation of these tests. An MRA of the head was negative for significant stenosis, aneurysm, or focal vessel occlusion. Past medical history is notable for multiple chronic conditions including coronary artery disease, status post CABG, hypertension, hyperlipidemia, type 2 diabetes mellitus, and COPD. The patient also informs me that she was treated for shingles about a month ago. She still has some residual healing herpetic lesions along the right C8 distribution of the hand. It is notable that the patient has not really been aware of any visual field deficit. However, upon performance of bedside visual field testing, the patient became aware of her loss to the visual field to the right, after which she became moderately upset. She denies a history of stroke or TIA. She has been taking both aspirin 81 mg/day and clopidogrel 75 mg/day in light of her history of significant coronary artery disease. Additional details as below. Family history noncontributory. Allergies Allergy/AdvReac Type Severity Reaction Status Date / Time isosorbide AdvReac Mild MIGRAINS Unverified 05/30/19 11:01 Home Medications Home Medications Medication Instructions Recorded Confirmed Type acetaminophen [Tylenol Extra 500 mg PO Q6H PRN 05/30/19 05/30/19 History Strength] albuterol sulfate [Ventolin HFA] 1 puff INHALATION Q4H PRN 05/30/19 05/30/19 History alprazolam 0.5 mg PO DAILY PRN 05/30/19 05/30/19 History aspirin 81 mg PO HS 05/30/19 05/30/19 History cholecalciferol (vitamin D3) 2,000 unit PO HS 05/30/19 05/30/19 History [Vitamin D3] clopidogrel 75 mg PO HS 05/30/19 05/30/19 History duloxetine 30 mg PO HS 05/30/19 05/30/19 History duloxetine 60 mg PO HS 05/30/19 05/30/19 History fenofibrate 160 mg PO HS 05/30/19 05/30/19 History [id number]-[id number]-[id number] 1 inh INHALATION BID 05/30/19 05/30/19 History [Trelegy Ellipta] insulin degludec [Tresiba 25 unit SUBCUT QAM 09/13/19 09/13/19 History FlexTouch U-100] lisinopril 10 mg PO HS 05/30/19 05/30/19 History metformin 500 mg PO BID 05/30/19 05/30/19 History pravastatin 20 mg PO HS 05/30/19 05/30/19 History Patient History Medical History History of intravascular stent placement Surgical History Previous back surgery History of open heart surgery Social History Preferred Language: Senegalese Communication Ability: Effective Beliefs That Will Affect Care: None Current Living Situation: Alone Feels Safe at Home: Yes Smoking Status: Current every day smoker Tobacco Type: cigarettes ; packs per day: 1 ; Cigarettes Per Day: 20 ; Hx Alcohol Use: Yes (occasional, none recently) Alcohol type: beer and hard liquor Hx Substance Use: No Review of Systems Constitutional: no fever and no chills Eyes: as per Subjective / HPI; no diplopia and no eye pain Ear, Nose, Mouth, Throat: no hearing loss Respiratory: + dyspnea Cardiovascular: no chest pain and no palpitations Gastrointestinal: as per Subjective / HPI, + nausea and + vomiting Genitourinary: no dysuria and no urinary incontinence Musculoskeletal: no neck pain and no myalgia Integumentary: as per Subjective / HPI and + lesions Neurologic: as per Subjective / HPI and + unsteadiness; no loss of sensation, no headache(s), no abnormal speech and no confusion Psychiatric: no depression and no anxiety Hematologic / Lymphatic: no easy bleeding and no easy bruising Physical Exam Physical Exam: The patient is a well-developed, well-nourished elderly female. She is alert and fully oriented. Recent and remote memory intact. Attention and concentration normal. Patient exhibits a normal spontaneous speech pattern. She is able to name objects and repeat phrases. Patient exhibits an age- appropriate fund of knowledge and normal comprehension of vocabulary. There is a right homonymous hemianopsia with bedside confrontation testing. Visual acuity normal. Pupils equal round reactive to light and accommodation. Eye movements normal. There is no ptosis or nystagmus. Facial sensation intact. There is no facial droop or weakness. Hearing intact. Palate elevates to midline. Shoulder shrug intact. Tongue protrudes to midline. Sensation intact to all modalities for all 4 limbs. Deep tendon reflexes are intact and symmetrical for the arms and legs bilaterally. The right plantar responses upgoing. Left plantar response equivocal. There is no dysdiadochokinesia or dysmetria [id number]-[id number] or [id number] bilaterally. Ophthalmoscopic examination reveals normal-appearing optic disks and posterior segments. No papilledema or hemorrhages. Carotid pulses normal bilaterally, no bruits to auscultation. Gait and station normal. Patient exhibits normal muscle strength and tone for all 4 limbs. No atrophy. No abnormal movements observed. Results & Data Vital Signs (Past 12 Hours) Vital Signs Temp Pulse Pulse Resp BP BP Pulse Ox 05/31/19 08:08 84 05/31/19 07:21 37.0 C 67 94 H 95/59 L 94 05/31/19 00:47 104 H 05/30/19 23:48 36.7 C 80 18 89/60 L 95 Laboratory Results WBC 10.86, hemoglobin 11.9, hematocrit 35.7, platelet count 207, sodium 138, potassium 3.9, BUN 46, creatinine 2.82, glucose 152, hemoglobin A1c 8.3, calcium 7.5, magnesium 1.6, troponin 0 0[address] of the head completed yesterday reveals a 3.3 cm left occipital lobe hypodensity consistent with a chronic to possibly subacute infarct. I reviewed the images as well as the radiologist interpretation of this test. MRI of the brain completed today reveals an acute infarct in the paramedian left occipital lobe in the left WRAPPER REWINDER territory. There is a small acute lacunar infarct within the right cerebellar hemisphere as well. I reviewed the images as well as the radiologist interpretation of this test. An MRA of the head was unremarkable. No evidence for stenosis, aneurysm, or focal vessel occlusion. An electrocardiogram reveals a sinus rhythm with premature atrial complexes, 79 bpm.
[2019-05-31] MEDS ORDERED: PERFLUTREN LIPID MICROSPHERE (DEFINITY) IV ONE (12:21)
--- NOTE | 2019-05-31 12:53 | Hospitalist Progress Note ---
Date of Service May 31, 2019 Assessment & Plan (1) Sepsis: - Presented with multiple issues, including acute CVA, obstructing right ureter stone with mild hydronephrosis, and acute EKG changes with elevated troponin. - Leukocytosis, elevated lactic acid level, persistent hypotension noted during this admission. - Urosepsis -- please see below regarding plan for stent placement. Continue Ceftriaxone for empiric coverage. - Cardiology consulted for acute EKG changes/elevated troponin. - Neurology consulted for evaluation of acute CVA. - Continue IV fluids at 200 cc/hr; currently stable without pressor support. (2) Metabolic acidosis: - Non anion gap, in setting of urosepis, CVA. - Continue IV fluids at 200 cc/hr. - Monitor labs daily. (3) Lactic acidosis: - Lactic acid level 3.8 at admission, now improved to 0.8. (4) Hypotension: - In setting of sepsis, BP was 70-80's overnight; currently stable on IVFs at 200 cc/hr. - Will continue to monitor; pt. is agreeable to pressor support if indicated. (5) Occipital stroke: - Developed confusion/slurred speech ~5-6 days ago, symptoms now improved but has ongoing right sided visual changes. 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 - Head MRA with no significant stenosis noted. - TTE with bubble study and carotid ultrasound both pending (CTA or MRA neck contraindicated due to contrast) - Stroke protocol initiated. - Continue home Aspirin/Plavix as prescribed; continue Pravastatin 20 mg daily - lipid panel showed elevated triglycerides. - Neurology consulted, appreciate input. - Will not be able to drive a vehicle following discharge and will require outpt assessment due to right homonymous hemianopsia. - PT/OT evaluation and speech therapy. (6) Acute electrocardiogram changes: - ST-T wave changes noted on admission EKG; also has prolonged QT, previously WNL in February 2019. - Trop has been elevated, peaked at 1.370 but continues to fluctuate. - Denies cardiac symptoms; cardiology consulted for evaluation and pre-op clearance. (7) Elevated troponin: - As noted above. (8) CAD (coronary artery disease): - H/o CABG ~8 years ago followed by second CABG -- on ASA/Plavix lifelong therapy per patient. 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 - Continue ASA,Plavix , Pravastatin as prescribed. -is notably not on a beta nilda but cannot add at this time due to hypotension (9) Acute renal failure: - Creatinine was 4.78 on admission, baseline ~1; likely multifactorial related to dehydration in setting of N/V/D vs. obstructing stone. - Creatinine improved to 2.82 with IV fluid hydration. - U/a, urine creatinine and sodium are pending. - Shannon to document accurate I/Os. - Plan for stent placement with urology on 06/01. - Hold nephrotoxic meds, including Metformin and Lisinopril. - Monitor renal function daily. (10) Ureteral calculus, right: - CT A/P with right obstructing ureter stone, 2 mm. - Consulted urology, plan for stent placement on 06/01 if cleared by neurology. - Ceftriaxone IV for empiric coverage; U/a is pending collection. - Hold Flomax due to hypotension; IV fluids at 200 cc/hr. (11) Nausea, vomiting, and diarrhea: - Likely related to acute GI viral illess vs. kidney stone. - IV fluids at 200 cc/hr. - CLD as tolerated. - Replace electrolytes prn. (12) Fall: - Possibly related to stroke with gait abnormalities vs. dehydration vs. other. - PT/OT evaluation. (13) Hyperlipidemia: - Continue statin as prescribed; holding home Fenofibrate. - Lipid panel showed elevated triglycerides. (14) HTN (hypertension): - Holding home Lisinopril in setting of hypotension/ARF. (15) DM type 2 (diabetes mellitus, type 2): - Hgb A1C was 8.3 - Holding home insulin; SSI coverage ordered. - Recommend simulation educator consult prior to discharge. (16) Depression: - Continue home Duloxetine. (17) COPD (chronic obstructive pulmonary disease): - Albuterol prn. - No evidence of acute exacerbation. (18) Tobacco use disorder: - Has been using Chantix at home. - Encourage tobacco cessation. - Nicotine patch ordered prn. (19) Anxiety: - Xanax 0.5 mg daily prn. (20) Electrolyte abnormality: - K level 1.6 -- ordered mag sulfate IV. - Monitor daily. (21) DVT prophylaxis: - SCDs; holding pharmacologic ppx for procedure, continue home ASA/Plavix. Dispo: Med/surg with tele. Supervising Physician Co-Signing Physician Notes PA Supervision Note: I did not personally see or examine the patient today, but I verified all conrad points of CHATA Nair's assessment and plan with the following exceptions/additions: None Subjective Pt. has fatigue, generalized weakness today. Nausea/vomiting now improved. BP has been stable in the 90's following IV fluid hydration, previously 70's overnight. Shannon with good urine output. Pt. does report loss of right side peripheral vision - possibly related to CVA. Neuro following along with cardiology and urology. Review of Systems Review of Systems: All systems reviewed & are unremarkable except as noted in HPI & below Constitutional: + fatigue, + weakness and + anorexia; no fever and no chills Respiratory: no cough, no dyspnea, no dyspnea on exertion and no wheezing Cardiovascular: no chest pain, no palpitations and no edema Gastrointestinal: no abdominal pain, no nausea, no vomiting and no constipation Genitourinary: no difficulty urinating Musculoskeletal: + myalgia and + body aches; no back pain and no joint pain Integumentary: no non-healing lesions Physical Exam Physical Exam: General: Ill appearing female, no acute distress HEENT: NC/AT; PERRLA with EOMI; [place] conjunctiva, MMM. Dry oral mucosa. Neck: Supple and nontender Cardiac: RRR Lungs: CTA bilaterally Abdomen: Bowel normoactive X 4; Nontender to palpatio Extremities: Warm. No edema present Neuro: No focal weakness Skin: No rash Results & Data Vital Signs (Past 12 Hours) Vital Signs Temp Pulse Pulse Resp BP Pulse Ox 05/31/19 08:08 84 05/31/19 07:21 37.0 C 67 94 H 95/59 L 94 Laboratory Results 05/31/19 05/31/19 05/31/19 Range/Units 08:53 07:56 05:20 WBC (4.8-10.8) K/uL RBC (4.2-5.4) M/uL Hgb (12.0-16.0) g/dL Hct (37-47) % MCV (80-100) fL MCH (25-34) pg MCHC (32-36) g/dL RDW Std Deviation (36.4-46.3) fL RDW Coeff of Randa (11.5-14.5) % Plt Count (130-400) K/uL MPV (7.4-10.4) fL Immature Gran % (Auto) % Neut % (Auto) % Lymph % (Auto) % [place] % (Auto) % Eos % (Auto) % Baso % (Auto) % Immature Gran # (Auto) (0.00-0.02) K/uL Neut # (Auto) (1.4-6.5) K/uL Lymph # (Auto) (1.2-3.4) K/uL [place] # (Auto) (0.11-0.59) K/uL Eos # (Auto) (0-0.5) K/uL Baso # (Auto) (0-0.2) K/uL Sodium (136-145) mmol/L Potassium (3.5-5.1) mmol/L Chloride (98-107) mmol/L Carbon Dioxide (21-32) mmol/L Anion Gap (3-11) BUN (7-18) mg/dl Creatinine (0.6-1.2) mg/dl Est Cr Clr Drug Dosing ml/min Est GFR ( Amer) Est GFR (Non-Af Amer) BUN/Creatinine Ratio (10-20) Glucose (70-99) mg/dl POC Glucose 179 H (70-99) Estimat Average Glucose mg/dl Hemoglobin A1c (4.5-5.6) % Lactate 0.8 (0.4-2.0) mmol/L Calcium (8.5-10.1) mg/dl Phosphorus (2.5-4.9) mg/dl Magnesium (1.8-2.4) mg/dl Troponin I 0.799 H* (0-0.045) ng/ml 05/31/19 05/31/19 05/31/19 Range/Units 05:20 05:20 05:20 WBC 10.86 H (4.8-10.8) K/uL RBC 3.83 L (4.2-5.4) M/uL Hgb 11.9 L (12.0-16.0) g/dL Hct 35.7 L (37-47) % MCV 93.2 (80-100) fL MCH 31.1 (25-34) pg MCHC 33.3 (32-36) g/dL RDW Std Deviation 53.0 H (36.4-46.3) fL RDW Coeff of Randa 15.6 H (11.5-14.5) % Plt Count 207 (130-400) K/uL MPV 11.6 H (7.4-10.4) fL Immature Gran % (Auto) 0.5 % Neut % (Auto) 81.4 % Lymph % (Auto) 9.7 % [place] % (Auto) 7.6 % Eos % (Auto) 0.6 % Baso % (Auto) 0.2 % Immature Gran # (Auto) 0.05 H (0.00-0.02) K/uL Neut # (Auto) 8.85 H (1.4-6.5) K/uL Lymph # (Auto) 1.05 L (1.2-3.4) K/uL [place] # (Auto) 0.83 H (0.11-0.59) K/uL Eos # (Auto) 0.06 (0-0.5) K/uL Baso # (Auto) 0.02 (0-0.2) K/uL Sodium 138 (136-145) mmol/L Potassium 3.9 (3.5-5.1) mmol/L Chloride 110 H (98-107) mmol/L Carbon Dioxide 19 L (21-32) mmol/L Anion Gap 9.0 (3-11) BUN 46 H (7-18) mg/dl Creatinine 2.82 H D (0.6-1.2) mg/dl Est Cr Clr Drug Dosing 27.9 ml/min Est GFR ( Amer) 20.5 Est GFR (Non-Af Amer) 17.7 BUN/Creatinine Ratio 16.3 (10-20) Glucose 152 H (70-99) mg/dl POC Glucose (70-99) Estimat Average Glucose 192 mg/dl Hemoglobin A1c 8.3 H (4.5-5.6) % Lactate (0.4-2.0) mmol/L Calcium 7.5 L (8.5-10.1) mg/dl Phosphorus 3.2 (2.5-4.9) mg/dl Magnesium 1.6 L (1.8-2.4) mg/dl Troponin I (0-0.045) ng/ml 05/30/19 05/30/19 05/30/19 Range/Units 20:53 20:16 15:09 WBC (4.8-10.8) K/uL RBC (4.2-5.4) M/uL Hgb (12.0-16.0) g/dL Hct (37-47) % MCV (80-100) fL MCH (25-34) pg MCHC (32-36) g/dL RDW Std Deviation (36.4-46.3) fL RDW Coeff of Randa (11.5-14.5) % Plt Count (130-400) K/uL MPV (7.4-10.4) fL Immature Gran % (Auto) % Neut % (Auto) % Lymph % (Auto) % [place] % (Auto) % Eos % (Auto) % Baso % (Auto) % Immature Gran # (Auto) (0.00-0.02) K/uL Neut # (Auto) (1.4-6.5) K/uL Lymph # (Auto) (1.2-3.4) K/uL [place] # (Auto) (0.11-0.59) K/uL Eos # (Auto) (0-0.5) K/uL Baso # (Auto) (0-0.2) K/uL Sodium (136-145) mmol/L Potassium (3.5-5.1) mmol/L Chloride (98-107) mmol/L Carbon Dioxide (21-32) mmol/L Anion Gap (3-11) BUN (7-18) mg/dl Creatinine (0.6-1.2) mg/dl Est Cr Clr Drug Dosing ml/min Est GFR ( Amer) Est GFR (Non-Af Amer) BUN/Creatinine Ratio (10-20) Glucose (70-99) mg/dl POC Glucose 142 H (70-99) Estimat Average Glucose mg/dl Hemoglobin A1c (4.5-5.6) % Lactate (0.4-2.0) mmol/L Calcium (8.5-10.1) mg/dl Phosphorus (2.5-4.9) mg/dl Magnesium (1.8-2.4) mg/dl Troponin I 1.180 H* 0.951 H* (0-0.045) ng/ml 05/30/19 Range/Units 14:40 WBC (4.8-10.8) K/uL RBC (4.2-5.4) M/uL Hgb (12.0-16.0) g/dL Hct (37-47) % MCV (80-100) fL MCH (25-34) pg MCHC (32-36) g/dL RDW Std Deviation (36.4-46.3) fL RDW Coeff of Randa (11.5-14.5) % Plt Count (130-400) K/uL MPV (7.4-10.4) fL Immature Gran % (Auto) % Neut % (Auto) % Lymph % (Auto) % [place] % (Auto) % Eos % (Auto) % Baso % (Auto) % Immature Gran # (Auto) (0.00-0.02) K/uL Neut # (Auto) (1.4-6.5) K/uL Lymph # (Auto) (1.2-3.4) K/uL [place] # (Auto) (0.11-0.59) K/uL Eos # (Auto) (0-0.5) K/uL Baso # (Auto) (0-0.2) K/uL Sodium (136-145) mmol/L Potassium (3.5-5.1) mmol/L Chloride (98-107) mmol/L Carbon Dioxide (21-32) mmol/L Anion Gap (3-11) BUN (7-18) mg/dl Creatinine (0.6-1.2) mg/dl Est Cr Clr Drug Dosing ml/min Est GFR ( Amer) Est GFR (Non-Af Amer) BUN/Creatinine Ratio (10-20) Glucose (70-99) mg/dl POC Glucose 150 H (70-99) Estimat Average Glucose mg/dl Hemoglobin A1c (4.5-5.6) % Lactate (0.4-2.0) mmol/L Calcium (8.5-10.1) mg/dl Phosphorus (2.5-4.9) mg/dl Magnesium (1.8-2.4) mg/dl Troponin I (0-0.045) ng/ml PG Care Time/CCT Total # of Minutes Spent Total Time Spent with Patient: Total time spent is greater than 50% in coordination of care (as documented) at patient's floor/unit and/or counseling patient: (1) Acute renal failure Acute renal failure type: unspecified Qualified Code(s): N17.9 - Acute kidney failure, unspecified
[2019-05-31 13:23] LABS: Chol HDL Ratio 11; Cholesterol 87 mg/dl (0-200); HDL Cholesterol 8 mg/dl; LDL Cholesterol Calculated 17 mg/dl; Triglycerides 311 mg/dl (0-150); VLDL Cholesterol 62 mg/dl
--- NOTE | 2019-05-31 14:46 | Cardiology Consultation ---
Date of Consultation May 31, 2019 Assessment & Plan (1) CAD (coronary artery disease): She appears to have an extensive history of coronary artery disease having undergone multiple revascularizations including 2 separate bypass operations. Unfortunately, we have no details of her cardiac history. Will attempt to obtain those today in order to clarify some of her history. It seems she has been maintained on dual anti-platelet therapy and moderate dose pravastatin. She is not taking a beta-nilda. She did not report a history of an overt myocardial infarction, but again her history is not clear. She does not report symptoms of angina. She is a very sedentary individual due to orthopedic disease, but she did not report chest pain or other symptoms consistent with angina during episodes of exertion. No chest pain leading up to this admission. (2) Elevated troponin: Her biomarker elevation is relatively flat. This is of unclear etiology. This could be related to recent acute coronary syndrome, but I think the more likely explanation is simply demand ischemia due to hypotension, hypovolemia and fixed coronary disease in the setting of acute renal failure. She does have concerning EKG changes. However, these changes could also be consistent with her known cerebral vascular accident. Since she is not currently having ischemic symptoms and her overall biomarker trend is downward since I think we can omit systemic heparinization currently. I think we will monitor her symptoms, EKG and biomarkers and decide if additional evaluation of her coronaries is necessary. Addition of a beta-nilda to her medical regimen would also seem like a good idea. We will need to coordinate this with the neurologist's presumably to avoid significant hypotension in the setting of an acute stroke. (3) Cardiomyopathy: Her echocardiogram is not normal. Whether were seen is chronic or acute is also on clears we have no records. She did not seem to think she had any weakness in her heart. She recently saw her float tender and was told to follow up annually. She is on an JILLIAN-inhibitor possibly for blood pressure and diabetes. She is not on a beta-nilda which would suggest that she does not have a history of a myocardial infarction or reduced LV function. She seems to have some dyspnea at times but this may be related to her chronic pulmonary disease. She appears to be well compensated on examination and there was no evidence of pulmonary edema on her recent x-ray. Again, addition of a beta- nilda would be useful in this setting. We will need to coordinate this with her medical team given her other comorbidities. (4) Ectopic atrial rhythm: She was evaluated here in February of this year. An EKG at that time revealed a normal sinus rhythm. Her current rhythm appears to be more consistent with an ectopic atrial rhythm. Do not believe this is causing any clinical issue. Will continue to monitor on telemetry. History of Present Illness Reason for Consultation: Coronary disease Requesting Physician: John Attending Physician: Angelique Lopez MD History of Present Illness The patient is a 50-year-old woman with a known history of significant cardiac disease having previously undergone both percutaneous and surgical revascularization. She was admitted to a medical Center after prolonged episodes of nausea, vomiting and weakness. It seems that she began to have symptoms of this nature about 6 days ago. She was brought to the local area by a relative for assistance during this illness. However, her symptoms progressed and she did suffer a fall as well. Upon evaluation at our Medical Center she was felt to have evidence of a gastrointestinal illness and admitted for observation. Curiously, she did have cardiac biomarkers drawn at the time of her presentation. It is unclear what motivated this assessment, as she did not complain of chest discomfort or symptoms of angina, but her initial marker was elevated. Patient was also noted to have acute renal failure, discovered to have ureteral obstruction due to a kidney stone and evidence of an acute occipital and cerebellar lacunar stroke. In this setting she continues to have elevated biomarkers and an abnormal EKG. The patient states that her cardiac disease began and nearly a decade ago. According to her she initially underwent percutaneous intervention of her coronary arteries and eventually underwent a bypass surgery she believes 8 years ago in [place]. She believes 4 years after her initial bypass she required a 2nd bypass surgery. She did report some unusual symptoms leading up to her surgeries. The last surgery appear to be preceded by a sense of generalized weakness and flushing. According to family members were present her initial bypass surgery was performed after she simply felt weak and appeared ill. She does not endorse symptoms of chest discomfort. She reports being sedentary individual due to some orthopedic complaints. But she is able to carry laundry up and down stairs without symptoms of chest discomfort or coronary insufficiency. She does have some dyspnea which is fairly chronic in nature. This is not worsened recently. She has not report any symptoms similar to those experienced prior to revascularization. Currently she denies symptoms of chest discomfort. Allergies Allergy/AdvReac Type Severity Reaction Status Date / Time isosorbide AdvReac Mild MIGRAINS Unverified 05/30/19 11:01 Home Medications Home Medications Medication Instructions Recorded Confirmed Type acetaminophen [Tylenol Extra 500 mg PO Q6H PRN 05/30/19 05/30/19 History Strength] albuterol sulfate [Ventolin HFA] 1 puff INHALATION Q4H PRN 05/30/19 05/30/19 History alprazolam 0.5 mg PO DAILY PRN 05/30/19 05/30/19 History aspirin 81 mg PO HS 05/30/19 05/30/19 History cholecalciferol (vitamin D3) 2,000 unit PO HS 05/30/19 05/30/19 History [Vitamin D3] clopidogrel 75 mg PO HS 05/30/19 05/30/19 History duloxetine 30 mg PO HS 05/30/19 05/30/19 History duloxetine 60 mg PO HS 05/30/19 05/30/19 History fenofibrate 160 mg PO HS 05/30/19 05/30/19 History [id number] 1 inh INHALATION BID 05/30/19 05/30/19 History [Trelegy Ellipta] insulin degludec [Tresiba 25 unit SUBCUT QAM 05/30/19 05/30/19 History FlexTouch U-100] lisinopril 10 mg PO HS 05/30/19 05/30/19 History metformin 500 mg PO BID 05/30/19 05/30/19 History pravastatin 20 mg PO HS 05/30/19 05/30/19 History Patient History Medical History Coronary artery disease Reported coronary bypass grafting on 2 occasions History of intravascular stent placement Surgical History Previous back surgery Social History Preferred Language: Cymraes Communication Ability: Effective Beliefs That Will Affect Care: None Current Living Situation: Alone Feels Safe at Home: Yes Smoking Status: Current every day smoker Tobacco Type: cigarettes ; packs per day: 1 ; Cigarettes Per Day: 20 ; Hx Alcohol Use: Yes (occasional, none recently) Alcohol type: beer and hard liquor Hx Substance Use: No Review of Systems Review of Systems: All systems reviewed & are unremarkable except as noted in HPI & below Patient recently discovered a visual field defect. She is currently not having symptoms of chest discomfort. She has not report symptoms of palpitations recently. She does report a chronic cough which occasionally wa kes her at night but no orthopnea or paroxysmal nocturnal dyspnea. Until recently she denies dizziness or lightheadedness. She has had several falls over the past few days including 1 at the hospital due to persistent dizziness. Physical Exam Physical Exam: She is alert and oriented x3. Mood affect appear normal. She answered all questions appropriately. HEENT: Sclerae are anicteric. Ptosis of the right eye. Neck: Examination of the submandibular region did not reveal any significant lymphadenopathy. Carotids are palpable bilaterally and free of bruits on auscultation. There was no evidence of jugular venous distention. The thyroid was not enlarged. Lungs: Lungs are clear to auscultation bilaterally. There are no rales wheezes or rhonchi. She has normal respiratory effort without use of accessory muscles. There is normal pulmonary excursion. Cardiac: The rhythm was regular. S1 and S2 were normal. There are no murmurs on examination. The PMI was not markedly displaced on palpation. Chest: Well-healed sternotomy scar Abdomen: The abdomen was soft and nontender. Extremities: Patient has bilateral radial pulses that are equal in intensity. There is no evidence cyanosis or clubbing. There was no evidence of significant peripheral edema bilaterally. Skin: There are no rashes noted on examination today. Results & Data Vital Signs (Past 12 Hours) Vital Signs Temp Pulse Pulse Resp BP Pulse Ox 05/31/19 08:08 84 05/31/19 07:21 37.0 C 67 94 H 95/59 L 94 Laboratory Results Abnormal Lab Results 05/30/19 05/30/19 05/30/19 14:40 15:09 20:16 WBC RBC Hgb Hct MCV MCH MCHC RDW Std Deviation RDW Coeff of Randa Plt Count MPV Immature Gran % (Auto) Neut % (Auto) Lymph % (Auto) [place] % (Auto) Eos % (Auto) Baso % (Auto) Immature Gran # (Auto) Neut # (Auto) Lymph # (Auto) [place] # (Auto) Eos # (Auto) Baso # (Auto) Sodium Potassium Chloride Carbon Dioxide Anion Gap BUN Creatinine Est Cr Clr Drug Dosing Est GFR ( Amer) Est GFR (Non-Af Amer) BUN/Creatinine Ratio Glucose POC Glucose 150 H 142 H Estimat Average Glucose Hemoglobin A1c Lactate Calcium Phosphorus Magnesium Troponin I 0.951 H* Triglycerides Cholesterol LDL Cholesterol, Calc VLDL Cholesterol, Calc HDL Cholesterol Cholesterol/HDL Ratio 05/30/19 05/31/19 05/31/19 20:53 05:20 05:20 WBC 10.86 H RBC 3.83 L Hgb 11.9 L Hct 35.7 L MCV 93.2 MCH 31.1 MCHC 33.3 RDW Std Deviation 53.0 H RDW Coeff of Randa 15.6 H Plt Count 207 MPV 11.6 H Immature Gran % (Auto) 0.5 Neut % (Auto) 81.4 Lymph % (Auto) 9.7 [place] % (Auto) 7.6 Eos % (Auto) 0.6 Baso % (Auto) 0.2 Immature Gran # (Auto) 0.05 H Neut # (Auto) 8.85 H Lymph # (Auto) 1.05 L [place] # (Auto) 0.83 H Eos # (Auto) 0.06 Baso # (Auto) 0.02 Sodium 138 Potassium 3.9 Chloride 110 H Carbon Dioxide 19 L Anion Gap 9.0 BUN 46 H Creatinine 2.82 H D Est Cr Clr Drug Dosing 27.9 Est GFR ( Amer) 20.5 Est GFR (Non-Af Amer) 17.7 BUN/Creatinine Ratio 16.3 Glucose 152 H POC Glucose Estimat Average Glucose Hemoglobin A1c Lactate Calcium 7.5 L Phosphorus 3.2 Magnesium 1.6 L Troponin I 1.180 H* Triglycerides Cholesterol LDL Cholesterol, Calc VLDL Cholesterol, Calc HDL Cholesterol Cholesterol/HDL Ratio 05/31/19 05/31/19 05/31/19 05:20 05:20 05:20 WBC RBC Hgb Hct MCV MCH MCHC RDW Std Deviation RDW Coeff of Randa Plt Count MPV Immature Gran % (Auto) Neut % (Auto) Lymph % (Auto) [place] % (Auto) Eos % (Auto) Baso % (Auto) Immature Gran # (Auto) Neut # (Auto) Lymph # (Auto) [place] # (Auto) Eos # (Auto) Baso # (Auto) Sodium Potassium Chloride Carbon Dioxide Anion Gap BUN Creatinine Est Cr Clr Drug Dosing Est GFR ( Amer) Est GFR (Non-Af Amer) BUN/Creatinine Ratio Glucose POC Glucose Estimat Average Glucose 192 Hemoglobin A1c 8.3 H Lactate Calcium Phosphorus Magnesium Troponin I 0.799 H* Triglycerides 311 H Cholesterol 87 LDL Cholesterol, Calc 17 VLDL Cholesterol, Calc 62 HDL Cholesterol 8 Cholesterol/HDL Ratio 11 05/31/19 05/31/19 05/31/19 07:56 08:53 12:41 WBC RBC Hgb Hct MCV MCH MCHC RDW Std Deviation RDW Coeff of Randa Plt Count MPV Immature Gran % (Auto) Neut % (Auto) Lymph % (Auto) [place] % (Auto) Eos % (Auto) Baso % (Auto) Immature Gran # (Auto) Neut # (Auto) Lymph # (Auto) [place] # (Auto) Eos # (Auto) Baso # (Auto) Sodium Potassium Chloride Carbon Dioxide Anion Gap BUN Creatinine Est Cr Clr Drug Dosing Est GFR ( Amer) Est GFR (Non-Af Amer) BUN/Creatinine Ratio Glucose POC Glucose 179 H 137 H Estimat Average Glucose Hemoglobin A1c Lactate 0.8 Calcium Phosphorus Magnesium Troponin I Triglycerides Cholesterol LDL Cholesterol, Calc VLDL Cholesterol, Calc HDL Cholesterol Cholesterol/HDL Ratio Diagnostic Findings Chest x-ray the time of admission apnea any acute cardiopulmonary disease Imaging of the head did reveal an occipital lesion consistent with an acute stroke. Also evidence of a recent lacunar stroke in the cerebellum Echocardiogram performed today revealed mildly to moderately reduced LV systolic function with ejection fraction around 40-45 percent. She did have regional wall motion abnormalities involving the anterior and lateral apex. Right ventricle also appeared to be abnormal. Slightly dilated and reduced function. No significant valvular heart disease. ECG Additional Comments: EKG suggests an ectopic atrial rhythm. She does have significant T-wave abnormalities and a slightly prolonged QT interval. PG Care Time/CCT Total # of Minutes Spent Total Time Spent with Patient: Total time spent is greater than 50% in coordination of care (as documented) at patient's floor/unit and/or counseling patient:
--- NOTE | 2019-05-31 17:38 | CT Scan Report ---
CT head/brain wo con CLINICAL HISTORY: 58 years-old Female presenting with Worsening vision, right sided vision changes. TECHNIQUE: Multidetector CT imaging of the head was performed without the use of intravenous contrast . IV contrast: None. One or more dose lowering techniques were used consistent with the principles of ALARA (as low as reasonably achievable), including automatic exposure control, mA or kV adjustment t o individual patient size, and/or use of iterative reconstruction. COMPARISON: 05/30/2019. CT DOSE (mGy.cm): The estimated cumulative dose is 912.18 mGy.cm. FINDINGS: [employer] topogram: Unremarkable. Ventricles and sulci normal in size. No hemorrhage. Redemonstration of the acute infarct in the paraf alcine left occipital lobe. No evidence of hemorrhagic conversion. No acute territorial infarct. No m ass effect or midline shift. No extra-axial fluid collection. Paranasal sinuses and mastoid air cells clear. Calvarium intact. IMPRESSION: 1. Stable appearance of the acute infarct in the left occipital lobe. No hemorrhagic conversion. Electronically signed by: Antwan Ramos M.D. 05/31/2019 5:35 PM
[2019-05-31 18:08] LABS: Est GFR (African American) 29.5; Potassium 3.7 mmol/L (3.5-5.1)
[2019-05-31 18:09] LABS: BUN Creatinine Ratio 18.1 (10-20); Calcium 8.3 mg/dl (8.5-10.1); Creatinine Clr Calc Pharmacy 37.9 ml/min; Est GFR (Non-African American) 25.5
[2019-05-31 18:21] LABS: Troponin I 0.64 ng/ml (0-0.045)
[2019-05-31] MEDS: SODIUM CHLORIDE 0.9% 1000ML 1,000 ML IV SCH ×2 (18:38→23:13)
--- NOTE | 2019-05-31 19:17 | Ultrasound Report ---
US carotid doppler BI CLINICAL HISTORY: 58 years-old Female presenting with Acute stroke. TECHNIQUE: Real-time grayscale and color and spectral Doppler ultrasound imaging of the bilateral car otid arteries was performed. Stenosis measurements were based on NASCET-like criteria (distal lumen d iameter as the denominator for stenosis measurement). COMPARISON: None. FINDINGS: RIGHT: Common carotid artery (CCA): Atherosclerosis at the carotid bulb. Peak systolic velocity (PSV) 83 cm/ s. Internal carotid artery (ICA): Atherosclerosis of the proximal ICA. PSV 74 cm/s. End diastolic veloci ty (EDV) 25 cm/s. ICA/CCA (systolic) ratio: 0.9. External carotid artery (ECA): Patent. PSV 121 cm/s. LEFT: CCA: Atherosclerosis at the carotid bulb. PSV 92 cm/s. ICA: Atherosclerosis of the proximal ICA. PSV 72 cm/s. EDV 32 cm/s. ICA/CCA (systolic) ratio: 0.8. ECA: Patent. PSV 70 cm/s. Bilateral antegrade flow within the vertebral arteries. Blood pressure: Not performed Brachial: Right: mmHg, Left: mmHg. Reference ranges: Stenosis measurements are compared to reference velocity parameters by the Society of Radiologists in Ultrasound (SRU) consensus and Sonographic NASCET index (S-NASCET). * SRU Primary parameters: ICA PSV <125 cm/s = normal or less than 50% stenosis; ICA PSV 125-230 cm/s = 50-69% stenosis; ICA PSV >230 cm/s = greater than or equal to 70% stenosis. * SRU Additional parameters: ICA/CCA PSV ratio <2 = normal or less than 50% stenosis; ratio 2-4 = 5 0-69% stenosis; ratio >4 = greater than or equal to 70% stenosis. ICA EDV <40 cm/s = normal or less t arana 50% stenosis; ICA EDV 40-100 cm/s = 50-69% stenosis; ICA EDV >100 cm/s = greater than or equal to 70% stenosis. * S-NASCET parameters: Deceleration spectral broadening + PSV <125 cm/s = less than 50% stenosis; pa nsystolic spectral broadening + PSV <125 cm/s = 16-49% stenosis; pansystolic spectral broadening + PS V >125 cm/s + EDV <110 cm/s or ICA/CCA PSV ratio 2-4 = 50-69% stenosis; pansystolic spectral broadeni ng + PSV >270 cm/s OR EDV >110 cm/s OR ICA/CCA PSV ratio >4 = 70-79% stenosis; EDV >140 cm/s = 80-99% stenosis. IMPRESSION: 1. Atherosclerosis without hemodynamically significant stenosis in the carotid arteries. Electronically signed by: Antwan Ramos M.D. 05/31/2019 7:16 PM
[2019-05-31] MEDS: PRAVASTATIN SOD 20 MG TAB PO SCH (19:40)
[2019-05-31 20:01] LABS: Appearance Urine Turbid (Clear); Bilirubin Urine Negative (Negative); Blood Urine 3+ (Negative); Color Urine Yellow; Glucose Urine UA Negative (Negative); Ketones Urine Negative (Negative); Leukocyte Esterase Urine 3+ (Negative); Nitrite Urine Negative (Negative); Protein Urine 2+ (Negative); Specific Gravity Urine 1.017 (1.000-1.030); Urobilinogen Urine Negative (Negative); WBC Urine Automated >30 /hpf (0-5)
[2019-05-31 20:13] LABS: Bacteria Urine Automated 1+ (Negative)
[2019-05-31 20:31] LABS: Creatinine Urine Random 61.3 mg/dl
[2019-05-31] MEDS: DULOXETINE HCL 30 MG CAP PO SCH (20:38)
[2019-05-31] MEDS: CLOPIDOGREL BISULFATE 75 MG TAB PO SCH (20:38)
[2019-05-31] MEDS: ASPIRIN 81 MG ECTAB PO SCH (20:38)
[2019-05-31] MEDS: DULOXETINE HCL 60 MG CAP PO SCH (20:38)
[2019-06-01] MEDS: SODIUM CHLORIDE 0.9% 1000ML 1,000 ML IV SCH ×4 (04:02→22:27)
[2019-06-01 06:58] LABS: Hematocrit (blood only) 33.3 % (37-47); Hemoglobin 11.1 g/dL (12.0-16.0); Mean Corpuscular Hgb Conc 33.3 g/dL (32-36); Mean Corpuscular Volume 94.3 fL (80-100); Mean Platelet Volume 11.2 fL (7.4-10.4); Platelet Count 221 K/uL (130-400); RDW Coefficient of Variation 16.1 % (11.5-14.5); RDW Standard Deviation 55.6 fL (36.4-46.3); Red Blood Count 3.53 M/uL (4.2-5.4)
[2019-06-01 07:07] LABS: INR 1.1 (0.9-1.1); Prothrombin Time 11.4 Seconds (9.0-12.0)
[2019-06-01 07:32] LABS: Albumin Level 1.8 gm/dl (3.4-5.0); BUN Creatinine Ratio 18.5 (10-20); Calcium 7.8 mg/dl (8.5-10.1); Creatinine Clr Calc Pharmacy 53.2 ml/min; Est GFR (African American) 44.4; Est GFR (Non-African American) 38.3; Magnesium 1.8 mg/dl (1.8-2.4); Potassium 3.6 mmol/L (3.5-5.1)
[2019-06-01 07:36] LABS: Albumin Globulin Ratio 0.4 (0.9-2); Bilirubin,Total 0.5 mg/dl (0.2-1); Globulin 4.2 gm/dl (2.5-4.0)
[2019-06-01] MEDS: INSULIN ASPART 100 UNITS/ML 3 ML PEN SC SCH ×4 (08:30→21:04)
[2019-06-01] MEDS: cefTRIAXone SODIUM 2,000 MG in DEXTROSE 5% 50 ML IV SCH (09:00)
--- NOTE | 2019-06-01 09:58 | Urology Progress Note ---
Date of Service June 01, 2019 Assessment & Plan (1) Ureteral calculus, right: NATACHA; stone; atrophic left kidney Identification of an acute CVA yesterday Appears to be recovering appropriately Asymptomatic from a kidney stone standpoint Creatinine continues to improvenearing baseline Given the small size of the stone and improvement in her kidney function as well as the comp getting factor of her recent CVA, I suggest simple observation with continued hydration and antibiotic coverage She does remain moderately hypotensive however she is not exhibiting other signs of sepsis currently We will resume diet and plan for observation Subjective Patient reports she is progressed well overnight She feels her balance and ambulation are improving She denies any flank pain No stone passage No hematuria Review of Systems Review of Systems: All systems reviewed & are unremarkable except as noted in HPI & below Physical Exam Constitutional: well developed and well nourished Respiratory: no respiratory distress Cardiovascular: Extremities: no pedal edema Gastrointestinal (Abdomen): Inspection/Auscultation: abdomen normal to inspection Results & Data Vital Signs (Past 12 Hours) Vital Signs Temp Pulse Pulse Pulse Resp BP BP 06/01/19 08:00 36.6 C 70 20 88/53 L 06/01/19 04:08 36.3 C L 64 18 147/83 H 05/31/19 23:55 37.2 C 82 20 116/72 05/31/19 23:20 80 Pulse Ox 06/01/19 08:00 92 06/01/19 04:08 97 05/31/19 23:55 93 05/31/19 23:20 PG Care Time/CCT Total # of Minutes Spent Total Time Spent with Patient: Total time spent is greater than 50% in coordination of care (as documented) at patient's floor/unit and/or counseling patient:
--- NOTE | 2019-06-01 10:26 | Neurology Progress Note ---
Date of Service June 01, 2019 Assessment & Plan (1) Occipital stroke: Left medial occipital lobe stroke resulting in a dense right homonymous hemianopsia. There is a smaller right cerebellar infarct as well, but without focal ataxia. This patient has multiple stroke risk factors including cardiovascular and peripheral vascular disease, suboptimally controlled diabetes mellitus, hypertension, hyperlipidemia, and cigarette smoking. No significant stenosis of the cervical arteries identified on carotid ultrasound. Her echocardiogram does reveal a PFO and incidental atrial septal aneurysm with small hemodynamically insignificant shunt as well as regional wall motion abnormalities of the left ventricle. Her acute stroke is multifocal, within the vertebrobasilar system and a cardioembolic source cannot be excluded. As recommended previously, would continue with daily low-dose aspirin and clopidogrel 75 mg/day. Tobacco cessation and improved control of her diabetes mellitus will be important going forward. At this point, I am uncertain if she would really benefit from anticoagulant. She does have a small PFO as well as some regional wall motion abnormalities affecting the left ventricle although her ejection fraction was estimated at 40 to 45% and there was no thrombus identified on echocardiogram. Cardiology suggested continuing aspirin for stroke prophylaxis. She will need an outpatient ophthalmology assessment of her visual renteria. I do not think she will be able to drive a motor vehicle on the basis of her dense right homonymous hemianopsia, however. No further immediate neurological recommendations. Please contact me if I may be of further assistance. Subjective Follow-up for stroke The patient is a 58-year-old female with a history of acute left occipital lobe infarct with associated dense right homonymous hemianopsia. She also has a much smaller acute lacunar infarct within the right cerebellar hemisphere, but without associated focal ataxia. The patient does not report any significant change in her visual field loss and denies development of any new neurological symptoms during her hospitalization. I had ordered a carotid ultrasound which was completed yesterday. The study reveals atherosclerotic change within the carotid arteries, but no hemodynamically significant stenosis observed. The patient had a follow-up CT of the head completed overnight as well which was negative for hemorrhagic conversion or other significant change. Review of Systems Constitutional: no fever Eyes: as per Subjective / HPI and + blind spots; no diplopia Neurologic: as per Subjective / HPI; no localized weakness and no abnormal speech Physical Exam Physical Exam: The patient is a well-developed, well-nourished elderly female. She is alert and fully oriented. Recent and remote memory intact. Attention and concentration normal. Patient exhibits a normal spontaneous speech pattern as well as an age-appropriate fund of knowledge. Patient continues to exhibit a dense right homonymous hemianopsia. Visual acuity intact. Pupils equal round reactive to light and accommodation. Eye movements intact. Facial sensation intact. There is no facial droop or weakness. Hearing intact. Palate elevates to midline. Shoulder shrug intact. Tongue protrudes to midline. Patient exhibits normal muscle strength and tone for all 4 limbs. No hemiparesis. No atrophy. No abnormal movements observed. Results & Data Vital Signs (Past 12 Hours) Vital Signs Temp Pulse Pulse Pulse Resp BP BP 06/01/19 08:00 36.6 C 70 20 88/53 L 06/01/19 04:08 36.3 C L 64 18 147/83 H 05/31/19 23:55 37.2 C 82 20 116/72 05/31/19 23:20 80 Pulse Ox 06/01/19 08:00 92 06/01/19 04:08 97 05/31/19 23:55 93 05/31/19 23:20 Diagnostic Findings A follow-up CT of the head completed at 5:34 PM last night was negative for hemorrhage or significant change. The acute infarct within the left occipital lobe was again seen. I reviewed the images as well as the radiologist interpretation of this test. This patient's brain MRI was completed at 10:07 AM yesterday morning and revealed an acute infarct within the left occipital lobe, as described previously. A carotid ultrasound completed yesterday revealed atherosclerosis without hemodynamically significant stenosis of the carotid arteries. An echocardiogram completed yesterday reveals mild to moderately reduced left ventricular systolic function. There is mild global hypokinesis and more significant hypokinesis involving the apical anterior and lateral kathleen. There is an incidental atrial septal aneurysm with a small hemodynamically insignificant shunt. Aspirin was suggested for stroke prophylaxis. Closure not felt to be indicated. PFO suspected. Electrocardiogram completed today reveals a normal sinus rhythm, 70 bpm.
[2019-06-01] MEDS ORDERED: SODIUM CHLORIDE 0.9% 1000ML 500 ML IV ONE (10:28)
--- NOTE | 2019-06-01 10:43 | Hospitalist Progress Note ---
Date of Service June 01, 2019 Assessment & Plan (1) Sepsis: - Presented with multiple issues, including acute CVA, obstructing right ureter stone, and acute EKG changes with elevated troponin. - Leukocytosis, elevated lactic acid level, persistent hypotension -- now improving. - Urosepsis -- please see below. Continue Ceftriaxone for empiric coverage. - Cardiology consulted for acute EKG changes. - Neurology consulted for acute CVA. - Continue IV fluids at 100 cc/hr; bolus prn hypotension. (2) Metabolic acidosis: - Non anion gap, in setting of urosepis & CVA - now improved on AM labs. - Continue IV fluids at 100 cc/hr. (3) Lactic acidosis: - Lactic acid level 3.8 at admission, improved to 0.8. (4) Hypotension: - In setting of sepsis, BP was 70-80's on 05/31 but has now stabilized -- decreased IV fluids to 100 cc/hr. - Has not required pressor support. (5) Occipital stroke: - Developed confusion/slurred speech ~5-6 days ago, has ongoing right sided visual changes. - MRI showed acute infarct in paramedian left occipital lobe in the left EMPLOYMENT ADJUDICATOR distribution and acute lacunar infarct in right cerebellar hemisphere. - Head MRA with no significant stenosis noted. - TTE with bubble study showed atrial septal aneurysm with small insignificant shunt and possible PFO. - Carotid US without significant stenosis in carotid arteries; still needs MRA of neck with contrast pending improvement in ARF to evaluate posterior circulation. No atrial fibrillation/flutter noted on tele. Could be embolic CVA vs thrombotic given risk factors of HTN,DMII,and smoking, hyperlipidemia - Continue home Aspirin/Plavix; will change to high intensity statin with atorvastatin 40mg daily - Neurology consulted, appreciate input. - Will not be able to drive a vehicle following discharge and will require outpt Ophthalmology assessment for visual field testing due to right homonymous hemianopsia. - PT/OT and speech therapy - recommending inpt acute rehab at discharge. (6) Atrial septal aneurysm: - Echo showed atrial septal aneurysm with small hemodynamically insignificant shunt; possible PFO noted. - Will continue daily ASA and Plavix as prescribed, anticoagulation is not indicated as per discussion with Cardiology - Cardiology following. (7) Acute electrocardiogram changes: - ST-T wave changes noted on admission EKG; also has prolonged QT, previously WNL in February 2019. Seems consistent with changes on ECG associated with acute CVA - Repeat EKG this morning with no significant changes. - Denies cardiac symptoms; cardiology consulted, appreciate input - plan for Lexiscan perfusion study on 06/02, NPO after midnight. (8) Elevated troponin: - Trop has been elevated, peaked at 1.370 and now trending down; may be re lated to demand ischemia. - Plan for cardiac perfusion study on 06/02 as noted above. (9) CAD (coronary artery disease): - H/o CABG ~8 years ago followed by second CABG -- on ASA/Plavix lifelong therapy. 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 - Continue ASA, Plavix, changing to atorvastatin (10) Acute renal failure: - Creatinine was 4.78 on admission, baseline ~1.0; likely multifactorial related to dehydration in setting of N/V/D vs. obstructing stone. - Creatinine improved to 1.49. - U/a was positive, urine culture pending; FeNa was 1.1%. - Continue salinas due to NATACHA but can now dc likely in the AM - No indication for stent placement with urology currently since renal failure resolving, however does remain hypotensive at times possibly due to her sepsis; will monitor. - Hold nephrotoxic meds, including Metformin and Lisinopril. - Monitor renal function qAM. (11) Ureteral calculus, right: - CT A/P with right obstructing ureter stone, 2 mm. - Consulted urology, no indication for stent placement at [facility] due to ongoing Cardiac, Neurologic, and Renal issues as above -- will continue to monitor. - Continue Ceftriaxone IV & follow sensitivities; U/a +blood, leuk est, bacteria -- UC is pending. - increase IV fluids at 125 cc/hr; no Flomax due to hypotension. (12) Nausea, vomiting, and diarrhea: - Likely related to acute GI viral illness vs. kidney stone. N/V now resolved, continues to have diarrhea. - C. diff and stool cultures collected--> C. diff negative - continue IV fluids -start Imodium 2mg q4h prn diarrhea - Carb consistent diet as tolerated. (13) Fall: Had a fall here in the hospital, CT head showed CVA - Possibly related to stroke with gait abnormalities vs. dehydration vs. other. - PT/OT evaluation - will need inpatient acute rehab at discharge. (14) Hyperlipidemia: - Continue statin as above; holding home Fenofibrate. - Lipid panel showed elevated triglycerides. (15) HTN (hypertension): - Holding home Lisinopril in setting of hypotension/ARF. (16) DM type 2 (diabetes mellitus, type 2): - Hgb A1C was 8.3 - Holding home insulin; SSI coverage ordered. - Recommend animal nursery worker consult prior to discharge. (17) Depression: - Continue home Duloxetine. (18) COPD (chronic obstructive pulmonary disease): - Albuterol prn. - No evidence of acute exacerbation. (19) Tobacco use disorder: - Has been using Chantix at home. - Encourage tobacco cessation. - Nicotine patch ordered prn. (20) Anxiety: - Xanax 0.5 mg daily prn. (21) Electrolyte abnormality: - No replacement required. - Monitor daily. (22) DVT prophylaxis: - SCDs; continue home ASA/Plavix. Start Heparin 5,000 units q12hr. Dispo: Med/surg with tele. Discharge pending improvement in hypotension/results of UC, completion of cardiac perfusion study and placement with acute inpatient rehab. Supervising Physician Co-Signing Physician Notes PA Supervision Note: I personally saw and examined the patient. I verified all conrad points and agree with CHATA Nair with the following exceptions and/or additions: Pt feeling a little better but very weak all over. Still with 4 episodes of diarrhea today, nonbloody, no melena. Denies CP or SOB. She is still with vision loss on right side. Vitals reviewed RRR no mgr CTAB no wcr Abd +BS soft NT ND, no CVA tenderness Ext no edema -Salinas in place with dark yellow clear urine 58 yo female with a h/o CAD s/p CABG, smoker, DMII, HTN, HL, here with N/V/D, NATACHA secondary to dehydration and ureterolithiasis, UTI and sepsis with septic shock, and Acute occipital and cerebellar CVA with ECG changes and elevated troponin. Complex issues Continue to try to support BP to prevent watershed infarct, increase iVFs -continue DAPT and statin as above Nuc Stess tomorrow for elevated trop Change statin to high intensity atorva Smoking cessation counseling Control diarrhea with Imodium, follow stool culture Needs posterior circulation of neck imaging when renal failure improves If remains hypotensive, need to revisit stent placement with Urology if stone still obstructin--> recommend checking Renal US in the AM Subjective Pt. is improved overall today -- renal function trending down, BP is stabilized with exception of hypotension this morning. Pt. feels better - continues to have diarrhea but denies significant pain, chest pain, SOB, N/V. Plan for observation per urology. Neuro following, has right sided vision deficits 2/2 stroke. Will need PT/OT evaluation -- will be discharged back to [place], pt. plans to stay with one of her relatives as she currently lives alone. Review of Systems Review of Systems: All systems reviewed & are unremarkable except as noted in HPI & below Constitutional: no fever, no chills, no fatigue, no weakness and no anorexia Respiratory: no cough, no dyspnea, no dyspnea on exertion and no wheezing Cardiovascular: no chest pain, no palpitations, no lightheadedness and no edema Gastrointestinal: + diarrhea/loose stools; no abdominal pain, no nausea, no vomiting and no constipation Genitourinary: no dysuria, no difficulty urinating and no hematuria Musculoskeletal: no back pain and no joint pain Integumentary: no non-healing lesions Physical Exam Physical Exam: General: No acute distress. HEENT: NC/AT; PERRLA with EOMI; [place] conjunctiva, MMM. Dry oral mucosa. Neck: Supple and nontender Cardiac: RRR Lungs: CTA bilaterally Abdomen: Bowel normoactive X 4; Nontender to palpation Extremities: Warm. No edema present Neuro: Right sided peripheral vision deficits noted on exam. +4/5 muscle strength bilat LE. Skin: No rash Results & Data Vital Signs (Past 12 Hours) Vital Signs Temp Pulse Pulse Pulse Resp BP BP 06/01/19 08:00 36.6 C 70 20 88/53 L 06/01/19 04:08 36.3 C L 64 18 147/83 H 05/31/19 23:55 37.2 C 82 20 116/72 05/31/19 23:20 80 Pulse Ox 06/01/19 08:00 92 06/01/19 04:08 97 05/31/19 23:55 93 05/31/19 23:20 Laboratory Results 06/01/19 06/01/19 06/01/19 Range/Units 07:40 06:44 06:44 WBC (4.8-10.8) K/uL RBC (4.2-5.4) M/uL Hgb (12.0-16.0) g/dL Hct (37-47) % MCV (80-100) fL MCH (25-34) pg MCHC (32-36) g/dL RDW Std Deviation (36.4-46.3) fL RDW Coeff of Randa (11.5-14.5) % Plt Count (130-400) K/uL MPV (7.4-10.4) fL PT 11.4 (9.0-12.0) Seconds INR 1.1 (0.9-1.1) Sodium 140 (136-145) mmol/L Potassium 3.6 (3.5-5.1) mmol/L Chloride 112 H (98-107) mmol/L Carbon Dioxide 21 (21-32) mmol/L Anion Gap 7.0 (3-11) BUN 28 H (7-18) mg/dl Creatinine 1.49 H D (0.6-1.2) mg/dl Est Cr Clr Drug Dosing 53.2 ml/min Est GFR ( Amer) 44.4 Est GFR (Non-Af Amer) 38.3 BUN/Creatinine Ratio 18.5 (10-20) Glucose 141 H (70-99) mg/dl POC Glucose 138 H (70-99) Calcium 7.8 L (8.5-10.1) mg/dl Magnesium 1.8 (1.8-2.4) mg/dl Total Bilirubin 0.5 (0.2-1) mg/dl AST 15 (15-37) U/L ALT 11 L (12-78) U/L Alkaline Phosphatase 45 (45-117) U/L Troponin I (0-0.045) ng/ml Total Protein 6.0 L (6.4-8.2) gm/dl Albumin 1.8 L (3.4-5.0) gm/dl Globulin 4.2 H (2.5-4.0) gm/dl Albumin/Globulin Ratio 0.4 L (0.9-2) Triglycerides (0-150) mg/dl Cholesterol (0-200) mg/dl LDL Cholesterol, Calc mg/dl VLDL Cholesterol, Calc mg/dl HDL Cholesterol mg/dl Cholesterol/HDL Ratio Urine Color Urine Appearance (Clear) Urine pH (4.5-7.5) Ur Specific [place] (1.000-1.030) Urine Protein (Negative) Urine Glucose (UA) (Negative) Urine Ketones (Negative) Urine Blood (Negative) Urine Nitrite (Negative) Urine Bilirubin (Negative) Urine Urobilinogen (Negative) Ur Leukocyte Esterase (Negative) Urine WBC (Auto) (0-5) /hpf Urine RBC (Auto) (0-4) /hpf U Hyaline Cast (Auto) (0-5) /lpf U Epithel Cells (Auto) (0-5) /lpf Urine Bacteria (Auto) (Negative) Granular Casts (0) /lpf Urine Yeast Ur Random Creatinine mg/dl Ur Random Sodium mmol/L 06/01/19 05/31/19 05/31/19 Range/Units 06:44 20:30 19:45 WBC 8.90 (4.8-10.8) K/uL RBC 3.53 L (4.2-5.4) M/uL Hgb 11.1 L (12.0-16.0) g/dL Hct 33.3 L (37-47) % MCV 94.3 (80-100) fL MCH 31.4 (25-34) pg MCHC 33.3 (32-36) g/dL RDW Std Deviation 55.6 H (36.4-46.3) fL RDW Coeff of Randa 16.1 H (11.5-14.5) % Plt Count 221 (130-400) K/uL MPV 11.2 H (7.4-10.4) fL PT (9.0-12.0) Seconds INR (0.9-1.1) Sodium (136-145) mmol/L Potassium (3.5-5.1) mmol/L Chloride (98-107) mmol/L Carbon Dioxide (21-32) mmol/L Anion Gap (3-11) BUN (7-18) mg/dl Creatinine (0.6-1.2) mg/dl Est Cr Clr Drug Dosing ml/min Est GFR ( Amer) Est GFR (Non-Af Amer) BUN/Creatinine Ratio (10-20) Glucose (70-99) mg/dl POC Glucose 180 H (70-99) Calcium (8.5-10.1) mg/dl Magnesium (1.8-2.4) mg/dl Total Bilirubin (0.2-1) mg/dl AST (15-37) U/L ALT (12-78) U/L Alkaline Phosphatase (45-117) U/L Troponin I (0-0.045) ng/ml Total Protein (6.4-8.2) gm/dl Albumin (3.4-5.0) gm/dl Globulin (2.5-4.0) gm/dl Albumin/Globulin Ratio (0.9-2) Triglycerides (0-150) mg/dl Cholesterol (0-200) mg/dl LDL Cholesterol, Calc mg/dl VLDL Cholesterol, Calc mg/dl HDL Cholesterol mg/dl Cholesterol/HDL Ratio Urine Color Yellow Urine Appearance Turbid A (Clear) Urine pH 5.0 (4.5-7.5) Ur Specific [place] 1.017 (1.000-1.030) Urine Protein 2+ H (Negative) Urine Glucose (UA) Negative (Negative) Urine Ketones Negative (Negative) Urine Blood 3+ H (Negative) Urine Nitrite Negative (Negative) Urine Bilirubin Negative (Negative) Urine Urobilinogen Negative (Negative) Ur Leukocyte Esterase 3+ H (Negative) Urine WBC (Auto) >30 H (0-5) /hpf Urine RBC (Auto) 10-30 H (0-4) /hpf U Hyaline Cast (Auto) 5-10 H (0-5) /lpf U Epithel Cells (Auto) 10-20 H (0-5) /lpf Urine Bacteria (Auto) 1+ H (Negative) Granular Casts 1-5 H (0) /lpf Urine Yeast Not Reportable Ur Random Creatinine mg/dl Ur Random Sodium mmol/L 05/31/19 05/31/19 05/31/19 Range/Units 19:45 17:38 12:41 WBC (4.8-10.8) K/uL RBC (4.2-5.4) M/uL Hgb (12.0-16.0) g/dL Hct (37-47) % MCV (80-100) fL MCH (25-34) pg MCHC (32-36) g/dL RDW Std Deviation (36.4-46.3) fL RDW Coeff of Randa (11.5-14.5) % Plt Count (130-400) K/uL MPV (7.4-10.4) fL PT (9.0-12.0) Seconds INR (0.9-1.1) Sodium 138 (136-145) mmol/L Potassium 3.7 (3.5-5.1) mmol/L Chloride 109 H (98-107) mmol/L Carbon Dioxide 20 L (21-32) mmol/L Anion Gap 9.0 (3-11) BUN 38 H (7-18) mg/dl Creatinine 2.09 H D (0.6-1.2) mg/dl Est Cr Clr Drug Dosing 37.9 ml/min Est GFR ( Amer) 29.5 Est GFR (Non-Af Amer) 25.5 BUN/Creatinine Ratio 18.1 (10-20) Glucose 145 H (70-99) mg/dl POC Glucose 137 H (70-99) Calcium 8.3 L (8.5-10.1) mg/dl Magnesium (1.8-2.4) mg/dl Total Bilirubin (0.2-1) mg/dl AST (15-37) U/L ALT (12-78) U/L Alkaline Phosphatase (45-117) U/L Troponin I 0.640 H* (0-0.045) ng/ml Total Protein (6.4-8.2) gm/dl Albumin (3.4-5.0) gm/dl Globulin (2.5-4.0) gm/dl Albumin/Globulin Ratio (0.9-2) Triglycerides (0-150) mg/dl Cholesterol (0-200) mg/dl LDL Cholesterol, Calc mg/dl VLDL Cholesterol, Calc mg/dl HDL Cholesterol mg/dl Cholesterol/HDL Ratio Urine Color Urine Appearance (Clear) Urine pH (4.5-7.5) Ur Specific [place] (1.000-1.030) Urine Protein (Negative) Urine Glucose (UA) (Negative) Urine Ketones (Negative) Urine Blood (Negative) Urine Nitrite (Negative) Urine Bilirubin (Negative) Urine Urobilinogen (Negative) Ur Leukocyte Esterase (Negative) Urine WBC (Auto) (0-5) /hpf Urine RBC (Auto) (0-4) /hpf U Hyaline Cast (Auto) (0-5) /lpf U Epithel Cells (Auto) (0-5) /lpf Urine Bacteria (Auto) (Negative) Granular Casts (0) /lpf Urine Yeast Ur Random Creatinine 61.3 mg/dl Ur Random Sodium 61 mmol/L 05/31/19 Range/Units 05:20 WBC (4.8-10.8) K/uL RBC (4.2-5.4) M/uL Hgb (12.0-16.0) g/dL Hct (37-47) % MCV (80-100) fL MCH (25-34) pg MCHC (32-36) g/dL RDW Std Deviation (36.4-46.3) fL RDW Coeff of Randa (11.5-14.5) % Plt Count (130-400) K/uL MPV (7.4-10.4) fL PT (9.0-12.0) Seconds INR (0.9-1.1) Sodium (136-145) mmol/L Potassium (3.5-5.1) mmol/L Chloride (98-107) mmol/L Carbon Dioxide (21-32) mmol/L Anion Gap (3-11) BUN (7-18) mg/dl Creatinine (0.6-1.2) mg/dl Est Cr Clr Drug Dosing ml/min Est GFR ( Amer) Est GFR (Non-Af Amer) BUN/Creatinine Ratio (10-20) Glucose (70-99) mg/dl POC Glucose (70-99) Calcium (8.5-10.1) mg/dl Magnesium (1.8-2.4) mg/dl Total Bilirubin (0.2-1) mg/dl AST (15-37) U/L ALT (12-78) U/L Alkaline Phosphatase (45-117) U/L Troponin I (0-0.045) ng/ml Total Protein (6.4-8.2) gm/dl Albumin (3.4-5.0) gm/dl Globulin (2.5-4.0) gm/dl Albumin/Globulin Ratio (0.9-2) Triglycerides 311 H (0-150) mg/dl Cholesterol 87 (0-200) mg/dl LDL Cholesterol, Calc 17 mg/dl VLDL Cholesterol, Calc 62 mg/dl HDL Cholesterol 8 mg/dl Cholesterol/HDL Ratio 11 Urine Color Urine Appearance (Clear) Urine pH (4.5-7.5) Ur Specific [place] (1.000-1.030) Urine Protein (Negative) Urine Glucose (UA) (Negative) Urine Ketones (Negative) Urine Blood (Negative) Urine Nitrite (Negative) Urine Bilirubin (Negative) Urine Urobilinogen (Negative) Ur Leukocyte Esterase (Negative) Urine WBC (Auto) (0-5) /hpf Urine RBC (Auto) (0-4) /hpf U Hyaline Cast (Auto) (0-5) /lpf U Epithel Cells (Auto) (0-5) /lpf Urine Bacteria (Auto) (Negative) Granular Casts (0) /lpf Urine Yeast Ur Random Creatinine mg/dl Ur Random Sodium mmol/L PG Care Time/CCT Total # of Minutes Spent Total Time Spent with Patient: Total time spent is greater than 50% in coordination of care (as documented) at patient's floor/unit and/or counseling patient: (1) Acute renal failure Acute renal failure type: unspecified Qualified Code(s): N17.9 - Acute kidney failure, unspecified
--- NOTE | 2019-06-01 12:44 | Cardiology Progress Note ---
Date of Service June 01, 2019 Assessment & Plan (1) CAD (coronary artery disease): No symptoms concerning for angina. Does have an extensive history of coronary disease. She does have EKG changes which appear to be most consistent with her cerebral vascular event but could also be related to ischemia. She does have some wall motion abnormalities on her echocardiogram and reduced LV systolic function. My review of the records available in her outpatient chart did not suggest any diagnosis of heart failure. No echocardiogram was on file. (2) Elevated troponin: Trending downward. Likely related to her cerebral vascular event and poss ibly sepsis with distributive shock. She was hypotensive at the time of admission. Marker elevation did not suggest an acute coronary syndrome. Currently trending downward with improvement in her clinical condition. (3) Cardiomyopathy: She did not have an echocardiogram on file in her outpatient record. I suspect these changes are relatively new. He was not on a medical regimen for reduced LV systolic function. As her pressure improves will attempt to add a beta-nilda to her medical regimen. She appears to be well compensated currently. Will need to monitor her for evidence of pulmonary vascular congestion. Based on what is perceived to be new echocardiographic changes, an abnormal EKG, history of coronary disease and elevated biomarkers, he would seem reasonable to perform some coronary evaluation. In the absence of chest pain I do not think she has had an acute coronary syndrome. I think it would be reasonable to perform perfusion imaging and see if there are high risk features associated with that exam. (4) Ectopic atrial rhythm: Currently in sinus rhythm Subjective This morning the patient claims to be feeling slightly better. Her nausea appears to have resolved and she was able to eat a very small amount of her breakfast. She denies pain either chest pain or flank pain. She continues to have a visual disturbance. No significant ambulation yet. Review of Systems Review of Systems: Per HPI Physical Exam Physical Exam: She is alert and oriented x3. Mood affect appear normal. She answered all questions appropriately. HEENT: Sclerae are anicteric. Some ptosis involving the right eye Lungs: Lungs are clear to auscultation bilaterally. There are no rales wheezes or rhonchi. She has normal respiratory effort without use of accessory muscles. There is normal pulmonary excursion. Cardiac: The rhythm was regular. S1 and S2 were normal. There are no murmurs on examination. The PMI was not markedly displaced on palpation. Extremities: Patient has bilateral radial pulses that are equal in intensity. No cyanosis. Skin: There are no rashes noted on examination today. Results & Data Vital Signs (Past 12 Hours) Vital Signs Temp Pulse Pulse Resp BP Pulse Ox 06/01/19 12:14 35.5 C L 66 18 104/69 95 06/01/19 08:00 36.6 C 70 20 88/53 L 92 06/01/19 04:08 36.3 C L 64 18 147/83 H 97 Laboratory Results Abnormal Lab Results 05/31/19 05/31/19 05/31/19 05:20 12:41 17:38 WBC RBC Hgb Hct MCV MCH MCHC RDW Std Deviation RDW Coeff of Randa Plt Count MPV PT INR Sodium 138 Potassium 3.7 Chloride 109 H Carbon Dioxide 20 L Anion Gap 9.0 BUN 38 H Creatinine 2.09 H D Est Cr Clr Drug Dosing 37.9 Est GFR ( Amer) 29.5 Est GFR (Non-Af Amer) 25.5 BUN/Creatinine Ratio 18.1 Glucose 145 H POC Glucose 137 H Calcium 8.3 L Magnesium Total Bilirubin AST ALT Alkaline Phosphatase Troponin I 0.640 H* Total Protein Albumin Globulin Albumin/Globulin Ratio Triglycerides 311 H Cholesterol 87 LDL Cholesterol, Calc 17 VLDL Cholesterol, Calc 62 HDL Cholesterol 8 Cholesterol/HDL Ratio 11 Urine Color Urine Appearance Urine pH Ur Specific [place] Urine Protein Urine Glucose (UA) Urine Ketones Urine Blood Urine Nitrite Urine Bilirubin Urine Urobilinogen Ur Leukocyte Esterase Urine WBC (Auto) Urine RBC (Auto) U Hyaline Cast (Auto) U Epithel Cells (Auto) Urine Bacteria (Auto) Granular Casts Urine Yeast Ur Random Creatinine Ur Random Sodium 05/31/19 05/31/19 05/31/19 19:45 19:45 20:30 WBC RBC Hgb Hct MCV MCH MCHC RDW Std Deviation RDW Coeff of Randa Plt Count MPV PT INR Sodium Potassium Chloride Carbon Dioxide Anion Gap BUN Creatinine Est Cr Clr Drug Dosing Est GFR ( Amer) Est GFR (Non-Af Amer) BUN/Creatinine Ratio Glucose POC Glucose 180 H Calcium Magnesium Total Bilirubin AST ALT Alkaline Phosphatase Troponin I Total Protein Albumin Globulin Albumin/Globulin Ratio Triglycerides Cholesterol LDL Cholesterol, Calc VLDL Cholesterol, Calc HDL Cholesterol Cholesterol/HDL Ratio Urine Color Yellow Urine Appearance Turbid A Urine pH 5.0 Ur Specific [place] 1.017 Urine Protein 2+ H Urine Glucose (UA) Negative Urine Ketones Negative Urine Blood 3+ H Urine Nitrite Negative Urine Bilirubin Negative Urine Urobilinogen Negative Ur Leukocyte Esterase 3+ H Urine WBC (Auto) >30 H Urine RBC (Auto) 10-30 H U Hyaline Cast (Auto) 5-10 H U Epithel Cells (Auto) 10-20 H Urine Bacteria (Auto) 1+ H Granular Casts 1-5 H Urine Yeast Not Reportable Ur Random Creatinine 61.3 Ur Random Sodium 61 06/01/19 06/01/19 06/01/19 06:44 06:44 06:44 WBC 8.90 RBC 3.53 L Hgb 11.1 L Hct 33.3 L MCV 94.3 MCH 31.4 MCHC 33.3 RDW Std Deviation 55.6 H RDW Coeff of Randa 16.1 H Plt Count 221 MPV 11.2 H PT 11.4 INR 1.1 Sodium 140 Potassium 3.6 Chloride 112 H Carbon Dioxide 21 Anion Gap 7.0 BUN 28 H Creatinine 1.49 H D Est Cr Clr Drug Dosing 53.2 Est GFR ( Amer) 44.4 Est GFR (Non-Af Amer) 38.3 BUN/Creatinine Ratio 18.5 Glucose 141 H POC Glucose Calcium 7.8 L Magnesium 1.8 Total Bilirubin 0.5 AST 15 ALT 11 L Alkaline Phosphatase 45 Troponin I Total Protein 6.0 L Albumin 1.8 L Globulin 4.2 H Albumin/Globulin Ratio 0.4 L Triglycerides Cholesterol LDL Cholesterol, Calc VLDL Cholesterol, Calc HDL Cholesterol Cholesterol/HDL Ratio Urine Color Urine Appearance Urine pH Ur Specific [place] Urine Protein Urine Glucose (UA) Urine Ketones Urine Blood Urine Nitrite Urine Bilirubin Urine Urobilinogen Ur Leukocyte Esterase Urine WBC (Auto) Urine RBC (Auto) U Hyaline Cast (Auto) U Epithel Cells (Auto) Urine Bacteria (Auto) Granular Casts Urine Yeast Ur Random Creatinine Ur Random Sodium 06/01/19 06/01/19 07:40 12:00 WBC RBC Hgb Hct MCV MCH MCHC RDW Std Deviation RDW Coeff of Randa Plt Count MPV PT INR Sodium Potassium Chloride Carbon Dioxide Anion Gap BUN Creatinine Est Cr Clr Drug Dosing Est GFR ( Amer) Est GFR (Non-Af Amer) BUN/Creatinine Ratio Glucose POC Glucose 138 H 111 H Calcium Magnesium Total Bilirubin AST ALT Alkaline Phosphatase Troponin I Total Protein Albumin Globulin Albumin/Globulin Ratio Triglycerides Cholesterol LDL Cholesterol, Calc VLDL Cholesterol, Calc HDL Cholesterol Cholesterol/HDL Ratio Urine Color Urine Appearance Urine pH Ur Specific [place] Urine Protein Urine Glucose (UA) Urine Ketones Urine Blood Urine Nitrite Urine Bilirubin Urine Urobilinogen Ur Leukocyte Esterase Urine WBC (Auto) Urine RBC (Auto) U Hyaline Cast (Auto) U Epithel Cells (Auto) Urine Bacteria (Auto) Granular Casts Urine Yeast Ur Random Creatinine Ur Random Sodium PG Care Time/CCT Total # of Minutes Spent Total Time Spent with Patient: Total time spent is greater than 50% in coordination of care (as documented) at patient's floor/unit and/or counseling patient:
[2019-06-01] MEDS: PRAVASTATIN SOD 20 MG TAB PO SCH (17:22)
[2019-06-01] MEDS ORDERED: LOPERAMIDE HCL 2 MG CAP PO STA (20:02)
[2019-06-01] MEDS: DULOXETINE HCL 30 MG CAP PO SCH (20:20)
[2019-06-01] MEDS: ASPIRIN 81 MG ECTAB PO SCH (20:20)
[2019-06-01] MEDS: CLOPIDOGREL BISULFATE 75 MG TAB PO SCH (20:20)
[2019-06-01] MEDS: HEPARIN SOD 5,000 UNIT/0.5 ML VIAL SQ SCH (20:20)
[2019-06-01] MEDS: DULOXETINE HCL 60 MG CAP PO SCH (20:20)
[2019-06-01] MEDS ORDERED: HEPARIN SOD 5,000 UNIT/0.5 ML VIAL SQ SCH (21:00)
[2019-06-02] MEDS: LOPERAMIDE HCL 2 MG CAP PO PRN ×2 (03:55→10:36)
[2019-06-02 05:56] LABS: Hematocrit (blood only) 32.7 % (37-47); Mean Corpuscular Hgb Conc 33.6 g/dL (32-36); Mean Corpuscular Volume 94.5 fL (80-100); Platelet Count 271 K/uL (130-400); RDW Coefficient of Variation 16.2 % (11.5-14.5); RDW Standard Deviation 56.2 fL (36.4-46.3); Red Blood Count 3.46 M/uL (4.2-5.4); White Blood Count 9.12 K/uL (4.8-10.8)
[2019-06-02] MEDS: SODIUM CHLORIDE 0.9% 1000ML 1,000 ML IV SCH ×2 (06:27→13:42)
[2019-06-02 06:36] LABS: Albumin Level 1.7 gm/dl (3.4-5.0); BUN Creatinine Ratio 18.1 (10-20); Calcium 8.3 mg/dl (8.5-10.1); Est GFR (African American) 69.4; Est GFR (Non-African American) 59.9; Magnesium 1.5 mg/dl (1.8-2.4)
[2019-06-02 06:38] LABS: Albumin Globulin Ratio 0.4 (0.9-2); Bilirubin,Total 0.4 mg/dl (0.2-1); Globulin 3.8 gm/dl (2.5-4.0); Total Protein 5.5 gm/dl (6.4-8.2)
--- NOTE | 2019-06-02 08:24 | Ultrasound Report ---
US renal/blad retro comp HISTORY: Hydronephrosis assess for persistent hydronephrosis COMPARISON: CT 05/30/2009 FINDINGS: Right kidney: Slight fullness right renal collecting system. This is improved from the prior exam. Sl ight fullness left renal collecting system and left renal pelvis also improved. Normal corticomedulla ry differentiation and cortical thickness. Left kidney: Slight fullness renal collecting system improved Normal corticomedullary differentiatio n and cortical thickness. Bladder: No bladder wall thickening. The bilateral ureteral jets were identified. IMPRESSION: 1. Slight fullness of the renal collecting systems bilaterally. 2. Study is improved compared to the prior CT study. The above report was generated using voice recognition software. It may contain grammatical, syntax or spelling errors. Electronically signed by: Kiko Barnett M.D. 06/02/2019 8:23 AM
[2019-06-02] MEDS ORDERED: REGADENOSON 0.4 MG/5 ML SYR IV ONE (08:58)
[2019-06-02] MEDS ORDERED: ATORVASTATIN 40 MG TAB PO SCH (09:00)
[2019-06-02] MEDS: INSULIN ASPART 100 UNITS/ML 3 ML PEN SC SCH ×2 (09:41→12:43)
[2019-06-02] MEDS: cefTRIAXone SODIUM 2,000 MG in DEXTROSE 5% 50 ML IV SCH (10:31)
[2019-06-02] MEDS: POTASSIUM CHLORIDE 20 MEQ TABCR PO SCH ×2 (10:31→12:42)
[2019-06-02] MEDS: HEPARIN SOD 5,000 UNIT/0.5 ML VIAL SQ SCH (10:32)
[2019-06-02] MEDS: MAGNESIUM SULFATE / D5W 1 GM/100 ML BAG IV SCH ×2 (10:32→12:42)
--- NOTE | 2019-06-02 15:29 | Urology Progress Note ---
Date of Service June 02, 2019 Assessment & Plan (1) Ureteral calculus, right: 2mm distal right ureteral stone, resulting hydronephrosis. [place] resolved on Renal US this AM. No pain. NATACHA has resolved. Shannon removed ~1 hour ago, awaiting spontaneous void. Will arrange routine outpatient follow up with our service. Thank you for allowing us to participate in the inpatient care of Ms. Todd. Please contact our service if we can assist further during hospitalization. Subjective 58 YO female with 2mm distal right ureteral calculus. Patient reports feeing much better today. No pain. Her Shannon was removed ~1 hour ago, awaiting spontaneous void. No fevers/chills. Hypotension is improving. Renal US this AM is reviewed demonstrating resolution of right hydronephrosis. Review of Systems Review of Systems: Per HPI. Physical Exam Constitutional: WD/WN, vitals as above ENMT: Ears: no hearing impairment Neck: normal visual inspection Respiratory: normal respiratory effort; does not use accessory muscles Cardiovascular: Vessels: no JVD Gastrointestinal (Abdomen): Percussion/Palpation: abdomen soft; abdomen nontender Psychiatric: A+Ox3, euthymic affect Genitourinary: no CVA tenderness Results & Data Vital Signs (Past 12 Hours) Vital Signs Temp Pulse Pulse Resp BP Pulse Ox 06/02/19 11:25 36.7 C 66 16 102/66 98 06/02/19 07:25 72 06/02/19 07:11 36.6 C 70 19 98/65 L 96 06/02/19 04:21 36.3 C L 71 20 115/74 94
[2019-06-02] MEDS ORDERED: STROKE PATIENT DISCHARGE STA (16:17)
--- NOTE | 2019-06-02 16:51 | Myocardial Perfusion Study ---
Date of Service June 02, 2019 Myocardial Perfusion Study [facility] Myocardial Perfusion Study Report Myocardial Perfusion Study Report One day nuclear medicine technetium 99m Cardiolite myocardial perfusion scan Clinical history: This stress test is being performed because of left ventricular dysfunction and an abnormal EKG in a patient with known coronary artery disease. Comparison: None Technique: For the stress portion of the study, 30.2 mCi of technetium 99m Cardiolite IV was injected at 9:30 a.m. on June 02, 2019. Thirty minutes following the injection, imaging of the heart was performed in multiple projections. For the rest portion of the study, 9.8 mCi of technetium 99m Cardiolite was injected IV at 7:30 a.m. on June 02, 2019. One hour following the injection, imaging of the heart was performed in the same projections. Lexiscan administration: For the stress portion of the study, the patient received 0.4 mg of Lexiscan injected intravenously. The patient did not experience Lexiscan induced chest discomfort. There were no EKG changes over the baseline abnormality. Following the study, the patient was hemodynamically stable without complaints. Findings: The short axis, vertical long axis, horizontal long axis, rotating, and gated images were reviewed in detail. There was a perfusion defect present in the proximal septal wall with Lexiscan induced stress. Perfusion was normal during rest. This suggests septal wall ischemia. The left ventricle demonstrates moderately reduced systolic function with moderate global hypokinesis. The left ventricular ejection fraction is 34%. Conclusions: 1. Scintigraphic evidence of a small area of septal wall stress-induced myocardial ischemia. 2. No Lexiscan induced chest pain. 3. No Lexiscan induced EKG changes. 4. Reduced left ventricular systolic function with global hypokinesis. Left ventricular ejection fraction is 34%.
--- NOTE | 2019-06-02 17:04 | Pharmacy Report ---
Pharmacist Stroke Counseling - Date of Service June 02, 2019 - Scope: Pharmacy has been consulted to provide medication discharge counseling for this patient admitted with ischemic stroke as per the Pharmacist Discharge Counseling for Stroke Patients Protocol. - Medications on Discharge: Home Medications Medication Instructions Recorded Confirmed Trelegy Ellipta 1 inh INHALATION BID 05/30/19 05/30/19 Tresiba FlexTouch U-100 25 unit SUBCUT QAM 05/30/19 05/30/19 acetaminophen [Tylenol Extra 500 mg PO Q6H PRN 05/30/19 05/30/19 Strength] albuterol sulfate [Ventolin HFA] 1 puff INHALATION Q4H PRN 05/30/19 05/30/19 alprazolam 0.5 mg PO DAILY PRN 05/30/19 05/30/19 aspirin 81 mg PO HS 05/30/19 05/30/19 cholecalciferol (vitamin D3) 2,000 unit PO HS 05/30/19 05/30/19 [Vitamin D3] clopidogrel 75 mg PO HS 05/30/19 05/30/19 duloxetine 30 mg PO HS 05/30/19 05/30/19 duloxetine 60 mg PO HS 05/30/19 05/30/19 fenofibrate 160 mg PO HS 05/30/19 05/30/19 metformin 500 mg PO BID 05/30/19 05/30/19 New Rx's Medication Instructions Recorded atorvastatin 40 mg PO QAM 30 Days #30 tab 06/02/19 carvedilol 3.125 mg PO BID #60 tab 06/02/19 - Action: The above medications, specifically ones for stroke treatment/prophylaxis, have been reviewed in detail with the patient and her family prior to discharge. This includes indication, common adverse reactions, drug interactions, and medication administration. Medication counseling has been employed using the teach-back method to ensure understanding. - Outcome: The patient has demonstrated understanding of the medications. Please note, they are aware that the pharmacist will call them within 72 hours post-discharge to confirm that the appropriate medications are being taken and answer any further medication related questions the patient might have at that time. Contact information Individual to be contacted: self Relationship to patient (if applicable): -- Phone number: [phone] Best time to call: anytime Additional comments: Patient understanding of Aspirin and Plavix. Aware of holding with procedures. Denies bruises/bleeding. Counseled on Prilosec and Nexium interactions. Patient's sister also on atorvastatin. Patient was never on pravastatin. Counseled on side effects of atorvastatin. Will be staying in [facility] for right now. Okay to leave message and if she doesn't answer WOULD PREFER we leave a message. Thank you for allowing pharmacy to be involved in the care of this patient. Please call [phone] or [phone] with any additional questions
--- NOTE | 2019-06-02 17:23 | Discharge Summary ---
Date of Service June 02, 2019 Admission HPI Per Admitting Provider 58 y/o F c/o n/v/d. Pt states she started to have body aches on Sunday. She started to have n/v and intolerance to PO on Sunday. This continued on Sunday and she also started to have diarrhea. By Sunday, pt had stopped with n/v but she continued to have diarrhea that was mostly water. This has continued into today. Her last emesis was Sunday. She has been able to keep down a bit of soup and watermelon since that time, but no substantial PO other than some fluids. She states she was sick with something similar a few months ago, but it was much less severe. Over the last few days, pt has not been urinating much. She has also noted that she feels confused and her friend states that she has been saying things that are not making sense and having trouble walking. Pt states she feels very weak and has had several falls over the last few days, which is unusual for her. Pt notes taking some sort of OTC anti-diarrheal medication the last few days. She has been able to take her regular medicines, but did miss her insulin this AM. Pt has hx of renal stones requiring lithotripsy and surgical stent placement. She states she has baseline back pain and this has been no different. She states that she has had no sx similar to when she has had renal stones in the past. Pt is a smoker, usually 1ppd, but has been only smoking about 2 cigs/day during this acute illness. She is trying to stop using chantix. Pt tells me that she had a CABG 8 yrs ago. She was put on aspirin/plavix at that time. There was an attempt to d/c plavix at some point after, however pt ended up having another ID requiring a second CABG. She has been told that she will need this medication indefinitely. She has been taking it while ill. Discharge Data Allergies Allergy/AdvReac Type Severity Reaction Status Date / Time isosorbide AdvReac Mild MIGRAINS Unverified 05/30/19 11:01 Consultations 05/30/19 11:10 ED Decision to Admit Stat 05/31/19 08:25 Consult Urology Routine 05/31/19 08:33 Consult Cardiology Routine 05/31/19 08:34 Consult Case Management - Discharge Planning Routine Consult Neurology Routine 05/31/19 14:47 Consult Health Information Management Stat Procedures Performed Operation Date: 05/31/19 12:10 <No data on this case meets the specified criteria> Ordered Studies 05/30/19 10:24 CT abd pelvis wo con Stat 05/30/19 22:34 CT head/brain wo con Urgent 05/31/19 08:34 MR angio head wo con Stat 05/31/19 12:18 US carotid doppler BI Routine 05/31/19 17:13 CT head/brain wo con Stat 05/31/19 23:37 MR brain wo con Urgent 06/02/19 07:26 US renal/blad retro comp Routine Hospital Course (1) Sepsis: - Presented with multiple issues, including acute CVA, obstructing right ureter stone, and acute EKG changes with elevated troponin. - Leukocytosis, elevated lactic acid level, persistent hypotension -- now improving. - Urosepsis -- please see below. Continue Ceftriaxone for empiric coverage. - Cardiology consulted for acute EKG changes. - Neurology consulted for acute CVA. - Continue IV fluids at 100 cc/hr; bolus prn hypotension. (2) Metabolic acidosis: - Non anion gap, in setting of urosepis & CVA - now improved on AM labs. - Continue IV fluids at 100 cc/hr. (3) Lactic acidosis: - Lactic acid level 3.8 at admission, improved to 0.8. (4) Hypotension: - In setting of sepsis, BP was 70-80's on 05/31 but has now stabilized -- decreased IV fluids to 100 cc/hr. - Has not required pressor support. (5) Occipital stroke: - Developed confusion/slurred speech ~5-6 days ago, has ongoing right sided visual changes. - MRI showed acute infarct in paramedian left occipital lobe in the left ROLL FORGER distribution and acute lacunar infarct in right cerebellar hemisphere. - Head MRA with no significant stenosis noted. - TTE with bubble study showed atrial septal aneurysm with small insignificant shunt and possible PFO. - Carotid US without significant stenosis in carotid arteries; still needs MRA of neck with contrast pending improvement in ARF to evaluate posterior circulation. No atrial fibrillation/flutter noted on tele. Could be embolic CVA vs thrombotic given risk factors of HTN,DMII,and smoking, hyperlipidemia - Continue home Aspirin/Plavix; will change to high intensity statin with a torvastatin 40mg daily - Neurology consulted, appreciate input. - Will not be able to drive a vehicle following discharge and will require outpt Ophthalmology assessment for visual field testing due to right homonymous hemianopsia. - PT/OT and speech therapy - recommending inpt acute rehab at discharge. (6) Atrial septal aneurysm: - Echo showed atrial septal aneurysm with small hemodynamically insignificant shunt; possible PFO noted. - Will continue daily ASA and Plavix as prescribed, anticoagulation is not indicated as per discussion with Cardiology - Cardiology following. (7) Acute electrocardiogram changes: - ST-T wave changes noted on admission EKG; also has prolonged QT, previously WNL in February 2019. Seems consistent with changes on ECG associated with acute CVA - Repeat EKG this morning with no significant changes. - Denies cardiac symptoms; cardiology consulted, appreciate input - plan for Lexiscan perfusion study on 06/02, NPO after midnight. (8) Elevated troponin: - Trop has been elevated, peaked at 1.370 and now trending down; may be related to demand ischemia. - Plan for cardiac perfusion study on 06/02 as noted above. (9) CAD (coronary artery disease): - H/o CABG ~8 years ago followed by second CABG -- on ASA/Plavix lifelong therapy. - [place] - Continue ASA, Plavix, changing to atorvastatin (10) Acute renal failure: - Creatinine was 4.78 on admission, baseline ~1.0; likely multifactorial related to dehydration in setting of N/V/D vs. obstructing stone. - Creatinine improved to 1.49. - U/a was positive, urine culture pending; FeNa was 1.1%. - Continue [place] due to NATACHA but can now dc likely in the AM - No indication for stent placement with urology currently since renal failure resolving, however does remain hypotensive at times possibly due to her sepsis; will monitor. - Hold nephrotoxic meds, including Metformin and Lisinopril. - Monitor renal function qAM. (11) Ureteral calculus, right: - CT A/P with right obstructing ureter stone, 2 mm. - Consulted urology, no indication for stent placement at [facility] due to ongoing Cardiac, Neurologic, and Renal issues as above -- will continue to monitor. - Continue Ceftriaxone IV & follow sensitivities; U/a +blood, leuk est, bacteria -- UC is pending. - increase IV fluids at 125 cc/hr; no Flomax due to hypotension. (12) Nausea, vomiting, and diarrhea: - Likely related to acute GI viral illness vs. kidney stone. N/V now resolved, continues to have diarrhea. - C. diff and stool cultures collected--> C. diff negative - continue IV fluids -start Imodium 2mg q4h prn diarrhea - Carb consistent diet as tolerated. (13) Fall: Had a fall here in the hospital, CT head showed CVA - Possibly related to stroke with gait abnormalities vs. dehydration vs. other. - PT/OT evaluation - will need inpatient acute rehab at discharge. (14) Hyperlipidemia: - Continue statin as above; holding home Fenofibrate. - Lipid panel showed elevated triglycerides. (15) HTN (hypertension): - Holding home Lisinopril in setting of hypotension/ARF. (16) DM type 2 (diabetes mellitus, type 2): - Hgb A1C was 8.3 - Holding home insulin; SSI coverage ordered. - Recommend visual educator consult prior to discharge. (17) Depression: - Continue home Duloxetine. (18) COPD (chronic obstructive pulmonary disease): - Albuterol prn. - No evidence of acute exacerbation. (19) Tobacco use disorder: - Has been using Chantix at home. - Encourage tobacco cessation. - Nicotine patch ordered prn. (20) Anxiety: - Xanax 0.5 mg daily prn. (21) Electrolyte abnormality: - No replacement required. - Monitor daily. (22) DVT prophylaxis: - SCDs; continue home ASA/Plavix. Start Heparin 5,000 units q12hr. Dispo: Med/surg with tele. Discharge pending improvement in hypotension/results of UC, completion of cardiac perfusion study and placement with acute inpatient rehab. Discharge Plan Discharge Items Patient Disposition: Home - Self-Care Reason For Visit: ARF Discharge Diagnosis: Acute renal failure Kidney stone Acute ischemic stroke, occipital lobe Elevated troponin Condition on Discharge: Good Goals: - follow up outpatient physical and occupational therapy - follow up with neurology - follow up with urology Activity: Per Instructions section Lifting: Gradually increase as tolerated Bathing: No limitations Exercise/Sports: Gradually increase as tolerated Driving/Machine Use: cannot drive until cleared by eye doctor Non-emergency contact: Primary Care Provider, Clinical Trial Assistant, Neurologist and Urologist Call non-emergency contact if: you have any medication questions, your symptoms worsen and you have a fever Follow-up/Referrals: Elan Bhatti, DO [Primary Care Provider] - Diet: Carb Consistent or DM2 and Heart Healthy Addtl Attending Provider Instructions: Medications: - LIPITOR: 40mg daily, this replaces Pravastatin for lipid control - CARVEDILOL: 3.125mg twice a day, recommended by Dr. Alexandra, can start tomorrow - LISINOPRIL: stop this medication as it will be replaced by the carvedilol Acute renal failure, kidney stone, hydronephrosis renal function back to baseline, no evidence of stone, no hydronephrosis on renal ultrasound today cleared by urology for discharge their office should contact you for follow up their number is [phone] Acute ischemic stroke, occipital lobes multifactorial with diabetes, hypertension secondary stroke prevention with Lipitor, aspirin, Plavix resume your Metformin and Tresiba as renal function back to baseline follow up with neurology in one month, Dr. Rothman please follow up with a local eye doctor, you cannot drive until your visual field deficits have improved Cardiomyopathy, history of bypass, elevated troponin nuclear stress test today was technically abnormal due to uptake but likely due to your bypass Dr. Alexandra says that nothing would be considered high risk he recommends starting on carvedilol 3.125mg twice a day for the cardiomyopathy he is happy to follow you locally if you are going to be here for several weeks his number is [phone] he also stated that you should follow up at some point with Dr. Padilla in [place] Pending Studies at Discharge: No Stand-Alone Forms: Medications to Prevent Stroke, My [facility] Medications and DC Order Prescriptions: New atorvastatin 40 mg Tablet 40 mg PO QAM 30 Days Qty: 30 RF: 2 carvedilol 3.125 mg tablet 3.125 mg PO BID Qty: 60 RF: 1 Continued clopidogrel 75 mg tablet 75 mg PO HS RF: 0 aspirin 81 mg Tablet,Delayed Release (Dr/Ec) 81 mg PO HS RF: 0 acetaminophen [Tylenol Extra Strength] 500 mg Tablet 500 mg PO Q6H PRN (Reason: Pain) RF: 0 alprazolam 0.5 mg tablet 0.5 mg PO DAILY PRN (Reason: Anxiety) RF: 0 albuterol sulfate [Ventolin HFA] 90 mcg/actuation HFA aerosol inhaler 1 puff inhalation Q4H PRN (Reason: Shortness Of Breath Or Wheezing) RF: 0 metformin 500 mg tablet extended release 24 hr 500 mg PO BID RF: 0 duloxetine 30 mg capsule,delayed release(DR/EC) 30 mg PO HS RF: 0 duloxetine 60 mg capsule,delayed release(DR/EC) 60 mg PO HS RF: 0 fenofibrate 160 mg tablet 160 mg PO HS RF: 0 cholecalciferol (vitamin D3) [Vitamin D3] 2,000 unit Tablet 2,000 unit PO HS RF: 0 Tresiba FlexTouch U-100 100 unit/mL (3 mL) insulin pen 25 unit subcut QAM RF: 0 Trelegy Ellipta 100-62.5-25 mcg blister with device 1 inh inhalation BID RF: 0 Discontinued pravastatin 10 mg tablet 20 mg PO HS RF: 0 lisinopril 10 mg tablet 10 mg PO HS RF: 0 Discharge Orders: Discharge Order (Routine); Ordered 06/02/19 Ordered By: Justino Shabazz Admission Data Admit Date/Time: 05/30/19 11:27 Attending Provider: Justino Shabazz Admit Provider: Marissa Clark Primary Care Provider: Elan Bhatti Other Providers: Marissa Clark ; Juan Alexandra ; Dru Rothman ; Juan Alaniz Other Interventions: Discharge Summary Assessment (RN) Last Done: 06/02/19 16:48
--- NOTE | 2019-06-04 13:43 | Pharmacy Report ---
Pharmacist Post D/C Phone Note - Phone Note: Date of phone call: June 04, 2019. Individual with whom pharmacist spoke to: EFREN VANESSA The following questions were reviewed during the phone call with responses listed below each: Can you tell me the medications that you are currently taking as well as when and how you take each medication? -See Table Below When have you missed any doses of your medications? - none What side effects are you having from your medications, specifically, the new medications you were started on? - none What questions do you have about your medications? - none What problems are you having obtaining your medications? - none When is your next appointment with your primary care doctor? - 06/09 As per the Pharmacist Discharge Counseling for Stroke Patients Protocol, this phone call has been completed within 72 hours of discharge. Thank you for allowing us to be involved in the care of this patient. - Home Medications: Home Medications Medication Instructions Recorded Confirmed Trelegy Ellipta 1 inh INHALATION BID 05/30/19 05/30/19 Tresiba FlexTouch U-100 25 unit SUBCUT QAM 05/30/19 05/30/19 acetaminophen [Tylenol Extra 500 mg PO Q6H PRN 05/30/19 05/30/19 Strength] albuterol sulfate [Ventolin HFA] 1 puff INHALATION Q4H PRN 05/30/19 05/30/19 alprazolam 0.5 mg PO DAILY PRN 05/30/19 05/30/19 aspirin 81 mg PO HS 05/30/19 05/30/19 cholecalciferol (vitamin D3) 2,000 unit PO HS 05/30/19 05/30/19 [Vitamin D3] clopidogrel 75 mg PO HS 05/30/19 05/30/19 duloxetine 30 mg PO HS 05/30/19 05/30/19 duloxetine 60 mg PO HS 05/30/19 05/30/19 fenofibrate 160 mg PO HS 05/30/19 05/30/19 metformin 500 mg PO BID 05/30/19 05/30/19 New Rx's Medication Instructions Recorded atorvastatin 40 mg PO QAM 30 Days #30 tab 06/02/19 carvedilol 3.125 mg PO BID #60 tab 06/02/19
== END 2019-06-02 17:50 | disposition home or self-care (01) | DRG 871 ==
LOC: ED 09:34 → 2N 11:27 → SUATTDRO 11:27 → 2N 13:50
DX: N17.9 Acute kidney failure, unspecified; F17.210 Nicotine dependence, cigarettes, uncomplicated; F41.8 Other specified anxiety disorders; E86.0 Dehydration; I95.9 Hypotension, unspecified; I42.9 Cardiomyopathy, unspecified; E78.5 Hyperlipidemia, unspecified; Z79.82 Long term (current) use of aspirin; E87.2 Acidosis; I63.9 Cerebral infarction, unspecified; J44.9 Chronic obstructive pulmonary disease, unspecified; I10 Essential (primary) hypertension; N20.1 Calculus of ureter; E11.9 Type 2 diabetes mellitus without complications; I25.10 Atherosclerotic heart disease of native coronary artery without angina pectoris; Z79.84 Long term (current) use of oral hypoglycemic drugs; A41.9 Sepsis, unspecified organism